=== PATIENT | female | born 1995 | race Caucasian/White ===

== ENCOUNTER 2017-04-10 00:28 | Emergency (ER) | payer MEDICAID ==
[2017-04-10] MEDS ORDERED: AMOXICILLIN TR/POT CLAVULANATE 500-125 MG TAB PO ONE (02:04)
[2017-04-10] MEDS ORDERED: TRAMADOL HCL 50 MG TABLET PO ONE (02:05)
--- NOTE | 2017-04-10 02:06 | ER Document Report ---
ED General - General Chief Complaint: Toothache Stated Complaint: TOOTHACHE Time Seen by Provider: 04/10/17 01:38 Notes: Patient is a 21-year-old female with a past history who presents with 3 days of progressively worsening pain to her right upper molars. Patient states she is concerned that she has an associated infection to the area. She has not seen a dentist regarding today's concerns. She describes as a severe, constant, stabbing pain to the affected area. She has tried ibuprofen with no relief of the pain. Nothing worsens the pain. Denies any difficulty swallowing, opening her mouth, difficulty breathing, or fever. No facial swelling. TRAVEL OUTSIDE OF THE [place] IN LAST 30 DAYS: No - Related Data Allergies/Adverse Reactions: No Known Allergies Allergy (Unverified 04/10/17 00:36) Past Medical History - General Information source: Patient - Social History Smoking Status: Never Smoker Chew tobacco use (# tins/day): No Frequency of alcohol use: None Drug Abuse: None Lives with: Family Family History: Reviewed & Not Pertinent Patient has suicidal ideation: No Patient has homicidal ideation: No Renal/ Medical History: Denies: Hx Peritoneal Dialysis Review of Systems - Review of Systems Notes: Constitutional: Negative for fever. HENT: Negative for sore throat. Eyes: Negative for visual changes. Cardiovascular: Negative for chest pain. Respiratory: Negative for shortness of breath. Gastrointestinal: Negative for abdominal pain, vomiting or diarrhea. Genitourinary: Negative for dysuria. Musculoskeletal: Negative for back pain. Skin: Negative for rash. Neurological: Negative for headaches, weakness or numbness. 10 point ROS negative except as marked above and in HPI. Physical Exam - Vital signs Vitals: Temp Pulse Resp BP Pulse Ox 97.5 F 82 16 119/58 L 100 04/10/17 00:32 04/10/17 00:32 04/10/17 00:32 04/10/17 00:32 04/10/17 00:32 Interpretation: Normal Notes: PHYSICAL EXAMINATION: GENERAL: Well-appearing, well-nourished and in no acute distress. HEAD: Atraumatic, normocephalic. EYES: sclera anicteric, conjunctiva are normal. ENT: Moist mucous membranes. Diffuse dental caries with swelling of the gumline near the right upper posterior molars NECK: Normal range of motion LUNGS: Normal work of breathing HEART: 2+ radial pulses bilaterally EXTREMITIES: no pitting or edema. No cyanosis. NEUROLOGICAL: No focal neurological deficits. Moves all extremities spontaneously and on command. PSYCH: Normal mood, normal affect. SKIN: Warm, Dry, normal turgor, no rashes or lesions noted. Course - Re-evaluation Re-evalutation: 04/10/17 02:04 Presentation is most consistent with likely an infected tooth. Does have multiple diffuse dental caries but the tooth #1 and 2 appear to have an associated infection. Airway is patent. Vitals within normal limits. Patient is able swallow without any difficulty. There is no significant facial swelling. Patient will be started on antibiotics. I've instructed to follow-up with dentistry as earliest ability for definitive management. Return precautions and follow-up recommendations have been discussed at length. - Vital Signs Vital signs: Temp Pulse Resp BP Pulse Ox 97.5 F 84 18 120/67 99 04/10/17 00:32 04/10/17 02:13 04/10/17 02:13 04/10/17 02:13 04/10/17 02:13 Discharge - Discharge Clinical Impression: Dental caries Condition: Good Disposition: HOME, SELF-CARE Additional Instructions: You have been seen for dental pain. It is very important that you follow-up with a dentist for definitive care. Please return if you develop fever greater than 101, swelling in your face, vomiting, difficulty breathing or swallowing, or any other symptoms that are concerning to you. For your pain: Take ibuprofen 600 mg and acetaminophen 1000 mg every 6 hours together as needed for pain. Prescriptions: Amox Tr/Potassium Clavulanate [Augmentin 875-125 Tablet] 1 tab PO BID 10 Days
[2017-04-10 02:14] VITALS: BP 120/67
== END 2017-04-10 02:13 | disposition home or self-care (01) ==
LOC: ER 00:28
DX: K02.9 Dental caries, unspecified (principal); K08.89 Other specified disorders of teeth and supporting structures
CPT/HCPCS: 99282; J3490

== ENCOUNTER 2017-05-17 18:52 | Inpatient (IN) | payer MEDICAID ==
[2017-05-17 19:20] LABS: VENOUS BLOOD BASE EXCESS -3.1 mmol/L; VENOUS BLOOD HCO3 19.9 mmol/L (20-32); VENOUS BLOOD PCO2 29.6 mmHg (35-63); VENOUS BLOOD PH 7.45 (7.30-7.42)
[2017-05-17 19:23] LABS: ABSOLUTE LYMPHOCYTES (AUTO) 0.7 10^3/uL (0.5-4.7); ABSOLUTE NEUT (AUTO) 10.4 10^3/uL (1.7-8.2); BASOPHILS % (AUTO) 0.2 % (0-2); EOSINOPHILS % (AUTO) 0.3 % (0-6); HEMATOCRIT 32.6 % (36.0-47.0); HEMOGLOBIN 10.8 g/dL (12.0-15.5); HGB HCT DIFFERENCE -0.2; LYMPHOCYTES % (AUTO) 5.9 % (13-45); MEAN CORPUSCULAR HEMOGLOBIN 29.9 pg (27.0-33.4); MEAN CORPUSCULAR HGB CONC 33.2 g/dL (32.0-36.0); MEAN CORPUSCULAR VOLUME 90 fl (80-97); MONOCYTES % (AUTO) 8.5 % (3-13); RED BLOOD COUNT 3.62 10^6/uL (3.72-5.28); RED CELL DISTRIBUTION WIDTH 13.9 % (11.5-14.0); SEGMENTED NEUTROPHILS % (AUTO) 85.1 % (42-78); WHITE BLOOD COUNT 12.3 10^3/uL (4.0-10.5)
[2017-05-17 19:31] LABS: ALANINE AMINOTRANSFERASE 26 U/L (9-52); ALKALINE PHOSPHATASE 100 U/L (38-126); ANION GAP 10 (5-19); ASPARTATE AMINO TRANSFERASE 16 U/L (14-36); BILIRUBIN,DIRECT 0.3 mg/dL (0.0-0.4); BILIRUBIN,TOTAL 0.4 mg/dL (0.2-1.3); BLOOD UREA NITROGEN 11 mg/dL (7-20); CALCIUM 8.1 mg/dL (8.4-10.2); CARBON DIOXIDE 17 mmol/L (22-30); CHLORIDE 103 mmol/L (98-107); CREATININE RESULT 0.81 mg/dL (0.52-1.25); GLUCOSE 98 mg/dL (75-110); POTASSIUM 3.8 mmol/L (3.6-5.0); SODIUM 129.9 mmol/L (137-145); TOTAL PROTEIN 6.2 g/dL (6.3-8.2)
[2017-05-17] MEDS ORDERED: NORMAL SALINE 1000 ML 1,000 ML IV ONE ×3 (19:35→23:50)
[2017-05-17] MEDS ORDERED: CEFTRIAXONE 1 GM/D5W RTU 50 ML IV ONE (19:45)
--- NOTE | 2017-05-17 19:46 | ER Document Report ---
ED General - General Chief Complaint: Flank pain, Fever Stated Complaint: FLANK PAIN Time Seen by Provider: 05/17/17 18:58 Notes: Patient is a 21-year-old female A1 who presents with 3 days of bilateral flank pain, suprapubic abdominal pain and 1 day of fever with associated vomiting and generalized malaise. Patient denies a history of similar symptoms in the past or during her prior pregnancies. States that several days ago she did have a small amount of vaginal spotting but this has since stopped. She has not seen an [facility]ING GROUP ANALYST for this yet. At time of my assessment she notes a severe, constant, stabbing pain to the bilateral flanks that is worsened by movement or touching the area. Nothing improves the pain. She notes an associated dysuria. TRAVEL OUTSIDE OF THE [place] IN LAST 30 DAYS: No - Related Data Allergies/Adverse Reactions: No Known Allergies Allergy (Unverified 04/10/17 00:36) Past Medical History - General Information source: Patient - Social History Smoking Status: Never Smoker Frequency of alcohol use: None Drug Abuse: None Lives with: Spouse/Significant other Family History: Reviewed & Not Pertinent Renal/ Medical History: Denies: Hx Peritoneal Dialysis Review of Systems - Review of Systems Notes: Constitutional: Positive for fever. HENT: Negative for sore throat. Eyes: Negative for visual changes. Cardiovascular: Negative for chest pain. Respiratory: Negative for shortness of breath. Gastrointestinal: Positive for suprapubic abdominal pain and vomiting Genitourinary: Positive for dysuria and bilateral flank pain Musculoskeletal: Negative for back pain. Skin: Negative for rash. Neurological: Negative for headaches, weakness or numbness. 10 point ROS negative except as marked above and in HPI. Physical Exam - Vital signs Vitals: Temp Pulse Resp BP Pulse Ox 101.2 F H 105 H 18 117/51 L 98 05/17/17 19:13 05/17/17 19:13 05/17/17 19:13 05/17/17 19:13 05/17/17 19:13 Interpretation: Tachycardic, Febrile Notes: PHYSICAL EXAMINATION: GENERAL: Appears mildly uncomfortable but no acute distress HEAD: Atraumatic, normocephalic. EYES: Pupils equal round and reactive to light, extraocular movements intact, sclera anicteric, conjunctiva are normal. ENT: nares patent, oropharynx clear without exudates. Dry mucous membranes. NECK: Normal range of motion, supple without lymphadenopathy LUNGS: Breath sounds clear to auscultation bilaterally and equal. No wheezes rales or rhonchi. HEART: Regular tachycardia without murmurs ABDOMEN: Soft, nontender, normoactive bowel sounds. No guarding, no rebound. No masses appreciated. Severe bilateral flank tenderness on palpation. EXTREMITIES: Normal range of motion, no pitting or edema. No cyanosis. NEUROLOGICAL: No focal neurological deficits. Moves all extremities spontaneously and on command. PSYCH: Normal mood, normal affect. SKIN: Warm, diaphoretic, normal turgor, no rashes or lesions noted. Course - Re-evaluation Re-evalutation: 05/17/17 19:45 Presentation is most consistent with acute pyelonephritis. Laboratories do demonstrate a large amount of white blood cells in the urine as well as bacteria. Patient has had constitutional symptoms at home as well as a fever. CVA tenderness is present on exam. The remainder laboratories are relatively unremarkable without evidence of renal dysfunction. I do not suspect an acute appendicitis, biliary pathology, pancreatitis, intra-abdominal abscess, or tubo- ovarian abscess based on history and examination. Patient is , bedside ultrasound does demonstrate a living intrauterine approximately 10 weeks with appropriate cardiac activity at a rate of 153 bpm. Given her in the setting of pyelonephritis will plan for admission to [facility]. 05/17/17 20:34 I have discussed this case with Dr. Tatum who agrees to admit. I discussed this plan with the patient who is also in agreement. Renal ultrasound is unremarkable. 05/17/17 21:24 The patient is now declining admission The patient has chosen to leave the facility against medical advice. The relevant issues have been reviewed and discussed with the patient and family at the bedside. At the time of this assessment there is no indication for involuntary commitment. The patient is alert, oriented, and able to express clearly their reasoning for not wanting to remain in the emergency department for further treatment. The patient is not clinically psychotic, intoxicated, and denies and suicidal ideation. Differential or suspected diagnoses based on medical screening exam: Pyelonephritis, sepsis The patient is aware of the concerning diagnoses and acknowledges understanding of the reasons for the following recommendations: Admission to the hospital for IV antibiotics and IV fluids The following recommendations/services were offered and refused: Hospital admission, IV antibiotics and fluids The following risks were explained: , permanent disability, loss of function, loss of , kidney dysfunction Clinical impression: Patient is competent to make decisions regarding the medical that is being offered. - Vital Signs Vital signs: Temp Pulse Resp BP Pulse Ox 99.5 F 105 H 18 95/65 L 98 05/17/17 20:36 05/17/17 19:13 05/17/17 20:56 05/17/17 20:56 05/17/17 20:56 - Laboratory Result Diagrams: 05/17/17 19:00 05/17/17 19:00 Laboratory results interpreted by me: 05/17/17 05/17/17 05/17/17 19:00 19:00 19:00 WBC 12.3 H RBC 3.62 L Hgb 10.8 L Hct 32.6 L Seg Neutrophils % 85.1 H Lymphocytes % 5.9 L Absolute Neutrophils 10.4 H VBG pH 7.45 H VBG pCO2 29.6 L VBG HCO3 19.9 L Sodium 129.9 L Carbon Dioxide 17 L POC Glucose Calcium 8.1 L Total Protein 6.2 L Albumin 3.0 L Urine Protein Urine Blood Urine Nitrite Ur Leukocyte Esterase 05/17/17 05/17/17 19:25 19:50 WBC RBC Hgb Hct Seg Neutrophils % Lymphocytes % Absolute Neutrophils VBG pH VBG pCO2 VBG HCO3 Sodium Carbon Dioxide POC Glucose 125 H Calcium Total Protein Albumin Urine Protein 30 H Urine Blood MODERATE H Urine Nitrite POSITIVE H Ur Leukocyte Esterase LARGE H - Diagnostic Test Radiology reviewed: Reports reviewed Discharge - Discharge Clinical Impression: Pyelonephritis Sepsis Qualifiers: Sepsis type: sepsis due to unspecified organism Qualified Code(s): A41.9 - Sepsis, unspecified organism Condition: Serious Disposition: AGAINST MEDICAL ADVICE
[2017-05-17 20:08] LABS: APPEARANCE,URINE CLOUDY; BILIRUBIN,URINE NEGATIVE (NEGATIVE); GLUCOSE, URINE NEGATIVE (NEGATIVE); KETONES,URINE NEGATIVE (NEGATIVE); LEUKOCYTE ESTERASE,URINE LARGE (NEGATIVE); NITRITE,URINE POSITIVE (NEGATIVE); PROTEIN,URINE 30 mg/dL (NEGATIVE); UROBILINOGEN,URINE NEGATIVE mg/dL (<2.0)
--- NOTE | 2017-05-17 20:29 | RADIOLOGY REPORT (SQ) ---
EXAM DESCRIPTION: U/S RETROPERITON LTD COMPLETED DATE/TIME: 05/17/2017 8:16 pm REASON FOR STUDY: bilateral flank pain, fever COMPARISON: None. TECHNIQUE: Dynamic and static grayscale images acquired of the kidneys and bladder and recorded on P ACS. Additional selected color Doppler and spectral images recorded. LIMITATIONS: None. FINDINGS: RIGHT KIDNEY: Normal size. Normal echogenicity. No solid or suspicious masses. No hydrone phrosis. No calcifications. LEFT KIDNEY: Normal size. Normal echogenicity. No solid or suspicious masses. No hydronephrosis. No calcifications. BLADDER: Limited evaluation, less than fully distended. OTHER FINDINGS: No other significant finding. IMPRESSION: NORMAL RENAL AND BLADDER ULTRASOUND. COMMENT: The degree of renal pelvicalyceal dilation is within normal limits for the patient's curren t stage of . TECHNICAL DOCUMENTATION: JOB ID: [id number] [email or web address]- All Rights Reserved
--- NOTE | 2017-05-17 21:56 | EKG REPORT ---
SEVERITY:- BORDERLINE ECG - SINUS RHYTHM BORDERLINE T ABNORMALITIES, INFERIOR LEADS : Confirmed by: Sony Eng MD 17-May-2017 21:56:21
[2017-05-17] MEDS ORDERED: ADENOSINE INJ/PF 6 MG/2 ML SDV IV ONE (23:07)
[2017-05-17] MEDS ORDERED: FENTANYL CITRATE INJ/PF 100 MCG/2 ML AMPUL ONE (23:09)
[2017-05-17] MEDS ORDERED: LORAZEPAM INJ 2 MG/1 ML VIAL ONE (23:10)
--- NOTE | 2017-05-17 23:30 | RADIOLOGY REPORT (SQ) ---
EXAM DESCRIPTION: CHEST SINGLE VIEW COMPLETED DATE/TIME: 05/17/2017 11:17 pm REASON FOR STUDY: FLANK PAIN COMPARISON: None. NUMBER OF VIEWS: One view. TECHNIQUE: Single frontal radiographic view of the chest acquired. LIMITATIONS: None. FINDINGS: LUNGS AND PLEURA: No opacities, masses or pneumothorax. No pleural effusion. MEDIASTINUM AND HILAR STRUCTURES: No masses. Contour normal. HEART AND VASCULAR STRUCTURES: Heart normal in size. Normal vasculature. BONES: No acute findings. HARDWARE: None in the chest. OTHER: No other significant finding. IMPRESSION: NO SIGNIFICANT RADIOGRAPHIC FINDING IN THE CHEST. TECHNICAL DOCUMENTATION: JOB ID: [id number] [employer]- All Rights Reserved
[2017-05-17] MEDS ORDERED: FENTANYL CITRATE INJ/PF 100 MCG/2 ML AMPUL IV ONE (23:31)
[2017-05-17] MEDS ORDERED: LORAZEPAM INJ 2 MG/1 ML VIAL IV ONE ×2 (23:31)
[2017-05-17] MEDS ORDERED: ACETAMINOPHEN 325 MG TABLET PO ONE (23:55)
[2017-05-18] MEDS ORDERED: NALOXONE HCL INJ/PF 0.4 MG/1 ML SDV IV ONE (00:45)
[2017-05-18] MEDS: OXYCODONE HCL IR 5 MG TABLET PO PRN ×5 (03:18→23:28)
[2017-05-18] MEDS: RINGERS SOLUTION,LACTATED 1,000 ML IV PRN (03:19)
--- NOTE | 2017-05-18 03:31 | PDOC H&P ---
History of Present Illness Admission Date/PCP: 05/17/17 20:57 Patient complains of: Back Pain History of Present Illness: KASHIF AVALOS is a 21 year old female with no care Pt reports a 4 day history of increasing right sided back pain. Pt reports urinary frequency and dysuria No vaginal bleeding Past Medical History LMP: ?? Obstetrical History: none 1 Delivery: Spontaneous Vaginal Delivery 2 Delivery: Spontaneous Vaginal Delivery Past Surgical History Past Surgical History: Reports: None Social History Lives with: Spouse/Significant other Smoking Status: Current Every Day Smoker Number of Years Smokin Frequency of Alcohol Use: None Hx Recreational Drug Use: No Drugs: None Hx Prescription Drug Abuse: No - Advance Directive Resuscitation Status: Full Code Family History Family History: Reviewed & Not Pertinent Parental Family History Reviewed: Yes Children Family History Reviewed: Yes Sibling(s) Family History Reviewed.: Yes Medication/Allergy Home Medications: Prenat Vit Comb.10/Iron/FA/Dha [Vitafol-Ob+Dha Combo Pack] 1 tab PO DAILY Allergies/Adverse Reactions: No Known Allergies Allergy (Unverified 04/10/17 00:36) Review of Systems All systems: reviewed and no additional remarkable complaints except as stated Physical Exam - Physical Exam Vital Signs: Temp Pulse Resp BP Pulse Ox 98.1 F 105 H 20 104/44 L 98 05/18/17 01:54 05/18/17 01:54 05/18/17 01:54 05/18/17 01:54 05/18/17 01:54 General appearance: PRESENT: no acute distress, cooperative, well-developed Respiratory exam: PRESENT: clear to auscultation [place] Cardiovascular exam: PRESENT: RRR GI/Abdominal exam: PRESENT: normal bowel sounds, soft, tenderness - Moderate Left CVA tenderness Result Impressions: Chest X-Ray 05/17/17 00:00 IMPRESSION: NO SIGNIFICANT RADIOGRAPHIC FINDING IN THE CHEST. Renal Ultrasound 05/17/17 18:59 IMPRESSION: NORMAL RENAL AND BLADDER ULTRASOUND. Assessment & Plan - Diagnosis (1) Qualifiers: Weeks of gestation: 10 weeks Qualified Code(s): Z3A.10 - 10 weeks gestation of Is this a current diagnosis for this admission?: Yes (2) Pyelonephritis Is this a current diagnosis for this admission?: Yes - Time Time Spent: 30 to 50 Minutes Medications reviewed and adjusted accordingly: Yes Anticipated discharge: Home Within: within 72 hours - Will give IV abx and IV rehydration will recheck labs and OB ultrasound in AM Plan d/c home with PO Abx
[2017-05-18] MEDS: PRENATAL VITAMIN W-O CA NO5/FE FUMARATE/FA CAPSULE PO SCH (10:04)
[2017-05-18] MEDS ORDERED: MORPHINE SULFATE 10 MG/ML INJ ONE (10:52)
[2017-05-18] MEDS ORDERED: MORPHINE SULFATE 10 MG/ML INJ IV ONE (11:30)
[2017-05-18] MEDS ORDERED: NICOTINE 21 MG/24 HR PATCH.TD24 TD ONE ×2 (11:30→15:00)
--- NOTE | 2017-05-18 12:08 | RADIOLOGY REPORT (SQ) ---
EXAM DESCRIPTION: U/S OB 14+ TRNABD 1GES W/O DOP COMPLETED DATE/TIME: 05/18/2017 11:52 am REASON FOR STUDY: pyleo/no care COMPARISON: None. TECHNIQUE: Transabdominal static and realtime grayscale images acquired of the pelvis. Additional se lected spectral and color Doppler images recorded. All images stored on PACs. bHCG: Not provided LIMITATIONS: None. FINDINGS: FETUS: EGA: 14 week 5 day SUGAR: 11/11/2017 EFW: Not calculated FHR: 160 beats per minute. EMMA: Adequate fluid PLACENTA: Posterior without evidence of abruption CERVICAL LENGTH: 2.3 cm. Closed. UTERUS: 14.4 x 10.5 x 9.4 cm, normal contours. RIGHT ADNEXA: Ovary not identified. No adnexal free fluid. No adnexal masses. LEFT ADNEXA: Ovary not identified. No adnexal free fluid. No adnexal masses. FREE FLUID: None. OTHER: Full anatomic survey is not performed. Grossly appropriate appearance of the spine, upper and lower extremities. IMPRESSION: LIVING INTRAUTERINE . ESTIMATED GESTATIONAL AGE:14 week 5 day. Trimester of : Second trimester - 13 weeks 1 day to 27 weeks 6 days. TECHNICAL DOCUMENTATION: JOB ID: [id number] [employer]- All Rights Reserved
[2017-05-18] MEDS: ACETAMINOPHEN 325 MG TABLET PO PRN ×2 (14:42→20:56)
[2017-05-18] MEDS: CEFTRIAXONE 1 GM/D5W RTU 1 GM/50 ML RTUPB IV SCH (17:39)
[2017-05-18 20:46] LABS: HEMATOCRIT 31.6 % (36.0-47.0); HEMOGLOBIN 10.3 g/dL (12.0-15.5); HGB HCT DIFFERENCE -0.7; MEAN CORPUSCULAR HEMOGLOBIN 29.9 pg (27.0-33.4); MEAN CORPUSCULAR HGB CONC 32.6 g/dL (32.0-36.0); MEAN CORPUSCULAR VOLUME 92 fl (80-97); RED BLOOD COUNT 3.45 10^6/uL (3.72-5.28); RED CELL DISTRIBUTION WIDTH 14.4 % (11.5-14.0); WHITE BLOOD COUNT 13.1 10^3/uL (4.0-10.5)
[2017-05-18] MEDS: HYDROMORPHONE HCL INJ/PF 2 MG/ML AMPULE IV PRN (20:55)
[2017-05-18] MEDS: ONDANSETRON HCL INJ/PF 4 MG/2 ML SDV IV PRN (21:00)
[2017-05-18 21:25] LABS: APPEARANCE,URINE CLEAR; BILIRUBIN,URINE NEGATIVE (NEGATIVE); GLUCOSE, URINE NEGATIVE (NEGATIVE); KETONES,URINE 20 mg/dL (NEGATIVE); LEUKOCYTE ESTERASE,URINE TRACE (NEGATIVE); NITRITE,URINE NEGATIVE (NEGATIVE); PROTEIN,URINE NEGATIVE (NEGATIVE); URINE SPECIFIC GRAVITY 1.005; UROBILINOGEN,URINE NEGATIVE mg/dL (<2.0)
[2017-05-19] MEDS: HYDROMORPHONE HCL INJ/PF 2 MG/ML AMPULE IV PRN ×7 (00:30→23:22)
[2017-05-19] MEDS: RINGERS SOLUTION,LACTATED 1,000 ML IV PRN ×3 (00:36→17:46)
[2017-05-19] MEDS: OXYCODONE HCL IR 5 MG TABLET PO PRN ×4 (03:53→22:06)
[2017-05-19] MEDS: ACETAMINOPHEN 325 MG TABLET PO PRN ×3 (04:55→19:51)
[2017-05-19] MEDS: ONDANSETRON HCL INJ/PF 4 MG/2 ML SDV IV PRN ×3 (05:45→23:36)
[2017-05-19 06:44] LABS: ABSOLUTE LYMPHOCYTES (AUTO) 0.9 10^3/uL (0.5-4.7); ABSOLUTE NEUT (AUTO) 10.1 10^3/uL (1.7-8.2); BASOPHILS % (AUTO) 0.3 % (0-2); EOSINOPHILS % (AUTO) 0.1 % (0-6); HEMATOCRIT 29.1 % (36.0-47.0); HEMOGLOBIN 9.5 g/dL (12.0-15.5); HGB HCT DIFFERENCE -0.6; LYMPHOCYTES % (AUTO) 7.7 % (13-45); MEAN CORPUSCULAR HEMOGLOBIN 29.8 pg (27.0-33.4); MEAN CORPUSCULAR HGB CONC 32.6 g/dL (32.0-36.0); MEAN CORPUSCULAR VOLUME 92 fl (80-97); MONOCYTES % (AUTO) 7.9 % (3-13); RED BLOOD COUNT 3.18 10^6/uL (3.72-5.28); RED CELL DISTRIBUTION WIDTH 14.3 % (11.5-14.0); WHITE BLOOD COUNT 12.1 10^3/uL (4.0-10.5)
[2017-05-19 07:11] LABS: ANION GAP 8 (5-19); BLOOD UREA NITROGEN 5 mg/dL (7-20); CARBON DIOXIDE 20 mmol/L (22-30); CHLORIDE 104 mmol/L (98-107); CREATININE RESULT 0.69 mg/dL (0.52-1.25); GLUCOSE 96 mg/dL (75-110); POTASSIUM 3.8 mmol/L (3.6-5.0); SODIUM 132.4 mmol/L (137-145)
--- NOTE | 2017-05-19 08:21 | PDOC PROGRESS REPORT ---
Subjective Subjective:: Pt reports that the L CVA pain is getting worse and starting to move around to the front of her abdomen Emesis x1 No vaginal bleeding Physical Exam - Physical Exam Vital Signs: Temp Pulse Resp BP Pulse Ox 98.4 F 102 H 20 112/48 L 98 05/19/17 03:55 05/19/17 03:55 05/19/17 03:55 05/19/17 03:55 05/19/17 03:55 Intake & Output 05/18/17 05/19/17 05/20/17 06:59 06:59 06:59 Intake Total 600 4150 Output Total 900 Balance 600 3250 General appearance: PRESENT: cooperative, mild distress, well-developed, well- nourished GI/Abdominal exam: PRESENT: normal bowel sounds, soft - Left CVA tenderness is more today that was upon admission Result Laboratory Results: 05/19/17 06:07 05/19/17 06:07 05/18/17 05/18/17 05/19/17 20:28 21:07 06:07 WBC 13.1 H 12.1 H RBC 3.45 L 3.18 L Hgb 10.3 L 9.5 L Hct 31.6 L 29.1 L MCV 92 92 MCH 29.9 29.8 MCHC 32.6 32.6 RDW 14.4 H 14.3 H Plt Count 127 L 132 L Seg Neutrophils % 84.0 H Lymphocytes % 7.7 L Monocytes % 7.9 Eosinophils % 0.1 Basophils % 0.3 Absolute Neutrophils 10.1 H Absolute Lymphocytes 0.9 Absolute Monocytes 1.0 Absolute Eosinophils 0.0 Absolute Basophils 0.0 Sodium Potassium Chloride Carbon Dioxide Anion Gap BUN Creatinine Est GFR ( Amer) Est GFR (Non-Af Amer) Glucose Calcium Urine Color YELLOW Urine Appearance CLEAR Urine pH 6.0 Ur Specific [place] 1.005 Urine Protein NEGATIVE Urine Glucose (UA) NEGATIVE Urine Ketones 20 H Urine Blood MODERATE H Urine Nitrite NEGATIVE Ur Leukocyte Esterase TRACE H Urine WBC (Auto) 13 Urine RBC (Auto) 45 05/19/17 06:07 WBC RBC Hgb Hct MCV MCH MCHC RDW Plt Count Seg Neutrophils % Lymphocytes % Monocytes % Eosinophils % Basophils % Absolute Neutrophils Absolute Lymphocytes Absolute Monocytes Absolute Eosinophils Absolute Basophils Sodium 132.4 L Potassium 3.8 Chloride 104 Carbon Dioxide 20 L Anion Gap 8 BUN 5 L Creatinine 0.69 Est GFR ( Amer) > 60 Est GFR (Non-Af Amer) > 60 Glucose 96 Calcium 8.0 L Urine Color Urine Appearance Urine pH Ur Specific [place] Urine Protein Urine Glucose (UA) Urine Ketones Urine Blood Urine Nitrite Ur Leukocyte Esterase Urine WBC (Auto) Urine RBC (Auto) Impressions: Chest X-Ray 05/17/17 00:00 IMPRESSION: NO SIGNIFICANT RADIOGRAPHIC FINDING IN THE CHEST. Renal Ultrasound 05/17/17 18:59 IMPRESSION: NORMAL RENAL AND BLADDER ULTRASOUND. Obstetrics Ultrasound 05/18/17 08:00 IMPRESSION: LIVING INTRAUTERINE . ESTIMATED GESTATIONAL AGE:14 week 5 day. Trimester of : Second trimester - 13 weeks 1 day to 27 weeks 6 days. Assessment & Plan - Diagnosis (1) Qualifiers: Weeks of gestation: 10 weeks Qualified Code(s): Z3A.10 - 10 weeks gestation of Is this a current diagnosis for this admission?: Yes (2) Pyelonephritis Is this a current diagnosis for this admission?: Yes (3) Kidney calculi Is this a current diagnosis for this admission?: Yes - Time Time Spent with patient: Less than 15 minutes Medications reviewed and adjusted accordingly: Yes Anticipated discharge: Home Within: Other - I suspect pt has a kidney stone Will recheck renal ultrasound and continue IV Abx and hydration Will start straining her urine
[2017-05-19] MEDS: NICOTINE 21 MG/24 HR PATCH.TD24 TD SCH (10:19)
[2017-05-19] MEDS: PRENATAL VITAMIN W-O CA NO5/FE FUMARATE/FA CAPSULE PO SCH (10:19)
--- NOTE | 2017-05-19 12:36 | RADIOLOGY REPORT (SQ) ---
EXAM DESCRIPTION: U/S RETROPERITON (RENAL/AORTA) COMPLETED DATE/TIME: 05/19/2017 11:48 am REASON FOR STUDY: LEFT FLANK PAIN COMPARISON: OB ultrasound 05/18/2017 Bilateral renal ultrasound 05/17/2017 TECHNIQUE: Dynamic and static grayscale images acquired of the kidneys and bladder and recorded on P ACS. Additional selected color Doppler and spectral images recorded. LIMITATIONS: None. FINDINGS: RIGHT KIDNEY: Normal size, 11 cm in length. Normal echogenicity. No solid or suspicious ma sses. No hydronephrosis. No calcifications. LEFT KIDNEY: Normal size, 11 cm in length. Normal echogenicity. No solid or suspicious masses. No hy dronephrosis. No calcifications. BLADDER: Bladder decompressed. Gravid uterus. Bladder not well seen. OTHER FINDINGS: No other significant finding. IMPRESSION: NORMAL RENAL ULTRASOUND. No hydronephrosis particularly on the left TECHNICAL DOCUMENTATION: JOB ID: [id number]- All Rights Reserved
[2017-05-19] MEDS: CEFTRIAXONE 1 GM/D5W RTU 1 GM/50 ML RTUPB IV SCH (17:46)
[2017-05-20] MEDS: HYDROMORPHONE HCL INJ/PF 2 MG/ML AMPULE IV PRN ×6 (01:47→22:41)
[2017-05-20] MEDS: RINGERS SOLUTION,LACTATED 1,000 ML IV PRN (02:01)
[2017-05-20] MEDS: OXYCODONE HCL IR 5 MG TABLET PO PRN ×3 (02:37→15:47)
[2017-05-20] MEDS: ACETAMINOPHEN 325 MG TABLET PO PRN ×2 (04:09→20:30)
[2017-05-20] MEDS ORDERED: PROMETHAZINE HCL INJ 25 MG/1 ML VIAL IV ONE (05:00)
[2017-05-20] MEDS ORDERED: ACETAMINOPHEN 325 MG TABLET PO ONE (05:00)
[2017-05-20 06:55] LABS: HEMATOCRIT 26.3 % (36.0-47.0); HEMOGLOBIN 8.8 g/dL (12.0-15.5); HGB HCT DIFFERENCE 0.1; MEAN CORPUSCULAR HEMOGLOBIN 29.9 pg (27.0-33.4); MEAN CORPUSCULAR HGB CONC 33.5 g/dL (32.0-36.0); MEAN CORPUSCULAR VOLUME 89 fl (80-97); RED BLOOD COUNT 2.94 10^6/uL (3.72-5.28); RED CELL DISTRIBUTION WIDTH 14.4 % (11.5-14.0); WHITE BLOOD COUNT 5.4 10^3/uL (4.0-10.5)
[2017-05-20 07:01] LABS: APPEARANCE,URINE CLEAR; BILIRUBIN,URINE NEGATIVE (NEGATIVE); GLUCOSE, URINE NEGATIVE (NEGATIVE); KETONES,URINE NEGATIVE (NEGATIVE); LEUKOCYTE ESTERASE,URINE TRACE (NEGATIVE); NITRITE,URINE NEGATIVE (NEGATIVE); PROTEIN,URINE NEGATIVE (NEGATIVE); URINE SPECIFIC GRAVITY 1.002; UROBILINOGEN,URINE NEGATIVE mg/dL (<2.0)
[2017-05-20] MEDS: PRENATAL VITAMIN W-O CA NO5/FE FUMARATE/FA CAPSULE PO SCH (09:00)
[2017-05-20] MEDS: NICOTINE 21 MG/24 HR PATCH.TD24 TD SCH (09:00)
--- NOTE | 2017-05-20 09:59 | PDOC PROGRESS REPORT ---
Subjective Progress Note for:: 05/20/17 Subjective:: Pt still with severe left flank flank. Some nausea but no vomiting. Requiring frequent Dilaudid. No BM for 3-4 days. No longer with dysuria. No vaginal bleeding. Physical Exam - Physical Exam Vital Signs: Temp Pulse Resp BP Pulse Ox 99.1 F 96 19 112/48 L 93 05/20/17 08:06 05/20/17 08:06 05/20/17 08:06 05/20/17 08:06 05/20/17 08:06 Intake & Output 05/19/17 05/20/17 05/21/17 06:59 06:59 06:59 Intake Total 4150 2965 Output Total 900 3500 Balance 3250 -535 General appearance: PRESENT: other - appears slightly diaphoretic and tired GI/Abdominal exam: PRESENT: tenderness - tender left flank Extremities exam: PRESENT: full ROM. ABSENT: calf tenderness, clubbing, pedal edema Result Laboratory Results: 05/20/17 06:21 05/19/17 06:07 05/20/17 05/20/17 06:21 06:30 WBC 5.4 RBC 2.94 L Hgb 8.8 L Hct 26.3 L MCV 89 MCH 29.9 MCHC 33.5 RDW 14.4 H Plt Count 126 L Urine Color STRAW Urine Appearance CLEAR Urine pH 7.0 Ur Specific [place] 1.002 Urine Protein NEGATIVE Urine Glucose (UA) NEGATIVE Urine Ketones NEGATIVE Urine Blood SMALL H Urine Nitrite NEGATIVE Ur Leukocyte Esterase TRACE H Urine WBC (Auto) 2 Urine RBC (Auto) 0 Impressions: Chest X-Ray 05/17/17 00:00 IMPRESSION: NO SIGNIFICANT RADIOGRAPHIC FINDING IN THE CHEST. Obstetrics Ultrasound 05/18/17 08:00 IMPRESSION: LIVING INTRAUTERINE . ESTIMATED GESTATIONAL AGE:14 week 5 day. Trimester of : Second trimester - 13 weeks 1 day to 27 weeks 6 days. Renal Ultrasound 05/19/17 00:00 IMPRESSION: NORMAL RENAL ULTRASOUND. No hydronephrosis particularly on the left Assessment & Plan - Diagnosis (1) Kidney calculi Is this a current diagnosis for this admission?: Yes (2) Pyelonephritis Is this a current diagnosis for this admission?: Yes - Plan Summary Plan Summary: add toradol for pain managemetn and check urine tox (knowing narcotics present from hospitalization-assure no other substances) -check chemical analysis of possible kidney stones -increase rocephin to bid -add senakot/miralax -check daily labs
[2017-05-20] MEDS: KETOROLAC TROMETHAMINE INJ/PF 30 MG/1 ML SDV IV PRN ×2 (11:11→20:32)
[2017-05-20] MEDS: ONDANSETRON HCL INJ/PF 4 MG/2 ML SDV IV PRN (11:29)
[2017-05-20] MEDS ORDERED: POLYETHYLENE GLYCOL 3350 POWDER 17 GM/1 PACKET PO ONE (11:30)
[2017-05-20 11:35] LABS: URINE BARBITURATES SCREEN NEGATIVE; URINE METHADONE SCREEN NEGATIVE; URINE OPIATES LOW UNCONFIRMED POSITIVE; URINE PHENCYCLIDINE SCREEN NEGATIVE
[2017-05-20] MEDS ORDERED: CEFTRIAXONE 1 GM/D5W RTU 1 GM/50 ML RTUPB IV ONE (13:00)
[2017-05-20] MEDS: CEFTRIAXONE 1 GM/D5W RTU 1 GM/50 ML RTUPB IV SCH (18:26)
[2017-05-21] MEDS ORDERED: HYDROXYZINE PAMOATE 50 MG CAPSULE PO ONE (00:15)
[2017-05-21] MEDS ORDERED: BISACODYL 10 MG SUPP.RECT PR PRN (05:00)
[2017-05-21] MEDS: HYDROMORPHONE HCL INJ/PF 2 MG/ML AMPULE IV PRN ×2 (05:04→11:35)
[2017-05-21] MEDS: CEFTRIAXONE 1 GM/D5W RTU 1 GM/50 ML RTUPB IV SCH (05:04)
[2017-05-21] MEDS: KETOROLAC TROMETHAMINE INJ/PF 30 MG/1 ML SDV IV PRN (06:38)
[2017-05-21] MEDS: ACETAMINOPHEN 325 MG TABLET PO PRN (06:59)
[2017-05-21] MEDS: OXYCODONE HCL IR 5 MG TABLET PO PRN ×2 (07:00→12:54)
[2017-05-21 07:07] LABS: HEMATOCRIT 27.5 % (36.0-47.0); HGB HCT DIFFERENCE -0.5; MEAN CORPUSCULAR HEMOGLOBIN 29.3 pg (27.0-33.4); MEAN CORPUSCULAR HGB CONC 32.6 g/dL (32.0-36.0); MEAN CORPUSCULAR VOLUME 90 fl (80-97); RED BLOOD COUNT 3.06 10^6/uL (3.72-5.28); RED CELL DISTRIBUTION WIDTH 14.4 % (11.5-14.0); WHITE BLOOD COUNT 4.5 10^3/uL (4.0-10.5)
[2017-05-21 07:27] LABS: ALANINE AMINOTRANSFERASE 37 U/L (9-52); ALBUMIN 2.5 g/dL (3.5-5.0); ALKALINE PHOSPHATASE 145 U/L (38-126); ANION GAP 9 (5-19); ASPARTATE AMINO TRANSFERASE 25 U/L (14-36); BILIRUBIN,DIRECT 0.2 mg/dL (0.0-0.4); BILIRUBIN,TOTAL 0.2 mg/dL (0.2-1.3); BLOOD UREA NITROGEN 8 mg/dL (7-20); CALCIUM 7.8 mg/dL (8.4-10.2); CARBON DIOXIDE 24 mmol/L (22-30); CHLORIDE 104 mmol/L (98-107); CREATININE RESULT 0.73 mg/dL (0.52-1.25); GLUCOSE 80 mg/dL (75-110); POTASSIUM 4.1 mmol/L (3.6-5.0); SODIUM 136.7 mmol/L (137-145); TOTAL PROTEIN 5.4 g/dL (6.3-8.2)
[2017-05-21] MEDS ORDERED: ONDANSETRON HCL INJ/PF 4 MG/2 ML SDV IV PRN (08:59)
[2017-05-21] MEDS ORDERED: SENNOSIDES/DOCUSATE 8.6-50 MG 1 EACH TABLET PO SCH (10:00)
--- NOTE | 2017-05-21 10:09 | RADIOLOGY REPORT (SQ) ---
EXAM DESCRIPTION: U/S RETROPERITON LTD COMPLETED DATE/TIME: 05/21/2017 9:46 am REASON FOR STUDY: left renal US to R/O abcess COMPARISON: 05/19/2017 TECHNIQUE: Dynamic and static grayscale images acquired of the kidneys and bladder and recorded on P ACS. Additional selected color Doppler and spectral images recorded. LIMITATIONS: None. FINDINGS: RIGHT KIDNEY: 11.6 cm in length Normal echogenicity. No solid or suspicious masses. No hydronephrosis. No calcifications. LEFT KIDNEY: 12.1 cm in length. Normal echogenicity. A complex appearing hypoechoic area is now identified in the midportion of the left kidney measuring 2.6 x 1.9 x 1.8 cm in diameters. The possi bility of a developing abscess collection cannot be excluded. No hydronephrosis. No calcification s. BLADDER: No masses. OTHER FINDINGS: What may represent a small right pleural effusion is identified IMPRESSION: A complex appearing hypoechoic area is now identified in the midportion of the left kidn ey is noted above. The possibility of a developing abscess collection cannot be excluded. Other fin dings as noted above TECHNICAL DOCUMENTATION: JOB ID: [id number] [employer]- All Rights Reserved
[2017-05-21] MEDS: PRENATAL VITAMIN W-O CA NO5/FE FUMARATE/FA CAPSULE PO SCH (10:19)
[2017-05-21] MEDS: NICOTINE 21 MG/24 HR PATCH.TD24 TD SCH (10:19)
--- NOTE | 2017-05-21 11:38 | PDOC PROGRESS REPORT ---
Subjective Progress Note for:: 05/21/17 Subjective:: pt reports nightly night sweats and fevers and increase in pain., also having constipation. Physical Exam - Physical Exam Vital Signs: Temp Pulse Resp BP Pulse Ox 99.9 F 105 H 17 119/47 L 95 05/21/17 07:24 05/21/17 07:24 05/21/17 07:24 05/21/17 07:24 05/21/17 07:24 Intake & Output 05/20/17 05/21/17 05/22/17 06:59 06:59 06:59 Intake Total 2965 4750 Output Total 3500 3100 100 Balance -535 1650 -100 General appearance: PRESENT: no acute distress, well-developed, well-nourished Head exam: PRESENT: atraumatic, normocephalic Respiratory exam: PRESENT: decreased breath sounds - in bases - reviewed incentive spirometer, symmetrical, unlabored. ABSENT: tachypnea, wheezes Cardiovascular exam: PRESENT: RRR. ABSENT: diastolic murmur, rubs, systolic murmur GI/Abdominal exam: PRESENT: normal bowel sounds, soft, tenderness - prob stool in area of abd that she reports feeling full/discomfort. + Left CVAT ttp. ABSENT: distended, guarding, mass, organolmegaly, rebound Rectal exam: PRESENT: deferred Extremities exam: ABSENT: calf tenderness Musculoskeletal exam: PRESENT: ambulatory Neurological exam: PRESENT: alert, awake, oriented to person, oriented to place , oriented to time, oriented to situation, CN II-XII grossly intact. ABSENT: motor sensory deficit Psychiatric exam: PRESENT: appropriate affect, normal mood. ABSENT: homicidal ideation, suicidal ideation Skin exam: PRESENT: dry, intact, warm. ABSENT: cyanosis, rash Result Laboratory Results: 05/21/17 06:26 05/21/17 06:26 05/21/17 05/21/17 06:26 06:26 WBC 4.5 RBC 3.06 L Hgb 9.0 L Hct 27.5 L MCV 90 MCH 29.3 MCHC 32.6 RDW 14.4 H Plt Count 155 Sodium 136.7 L Potassium 4.1 Chloride 104 Carbon Dioxide 24 Anion Gap 9 BUN 8 Creatinine 0.73 Est GFR ( Amer) > 60 Est GFR (Non-Af Amer) > 60 Glucose 80 Calcium 7.8 L Total Bilirubin 0.2 AST 25 ALT 37 Alkaline Phosphatase 145 H Total Protein 5.4 L Albumin 2.5 L Impressions: Chest X-Ray 05/17/17 00:00 IMPRESSION: NO SIGNIFICANT RADIOGRAPHIC FINDING IN THE CHEST. Obstetrics Ultrasound 05/18/17 08:00 IMPRESSION: LIVING INTRAUTERINE . ESTIMATED GESTATIONAL AGE:14 week 5 day. Trimester of : Second trimester - 13 weeks 1 day to 27 weeks 6 days. Renal Ultrasound 05/21/17 00:00 IMPRESSION: A complex appearing hypoechoic area is now identified in the midportion of the left kidney is noted above. The possibility of a developing abscess collection cannot be excluded. Other findings as noted above Status: Imported from PACS Assessment & Plan - Diagnosis (1) Kidney calculi Is this a current diagnosis for this admission?: YesPlan: Prior provider suspected renal calculi due to + RBC in urine and flank pain - cont to strain urine (2) Qualifiers: Weeks of gestation: 15 weeks Qualified Code(s): Z3A.15 - 15 weeks gestation of Is this a current diagnosis for this admission?: YesPlan: Continue current care with doptones. PNV (3) Pyelonephritis Is this a current diagnosis for this admission?: YesPlan: Continue Rocephin now BID. REnal US ordered due to continuing to spike daily fevers. Concern for renal abcess. - Time Time Spent with patient: 15-24 minutes Critical Time spent with patient: Less than 15 minutes Smoking Cessation Education: 3 to 10 minutes Medications reviewed and adjusted accordingly: Yes Anticipated discharge: Home Within: within 72 hours, Other - poss need for transfer - Inpatient Certification Based on my medical assessment, after consideration of the patient's comorbidities, presenting symptoms, or acuity I expect that the services needed warrant INPATIENT care.: Yes I certify that my determination is in accordance with my understanding of Medicare's requirements for reasonable and necessary INPATIENT services [42 CFR 412.3e].: Yes Medical Necessity: Significant Comorbidiites Make Outpatient Treatment Too Risky , Need For IV Fluids, Need for IV Antibiotics Post Hospital Care: D/C News Department Intern Documentation - Plan Summary Plan Summary: Obtaine renal US and may need to adjust abx, r/o renal abscess
[2017-05-21] MEDS ORDERED: PIPERACILLIN/TAZOBACTAM 3.375 GM VIAL IV ONE (11:42)
--- NOTE | 2017-05-21 11:58 | PDOC TRANSFER SUMMARY ---
General Admission Date/PCP: 05/18/17 01:30 Admission Date: 05/17/17 Transfer Date: 05/21/17 Accepting Facility: [facility] Accepting Physician: Dr. Zak Bay Resuscitation Status: Full Code - Transfer Diagnosis (1) Kidney calculi Is this a current diagnosis for this admission?: Yes (2) Is this a current diagnosis for this admission?: Yes (3) Pyelonephritis Is this a current diagnosis for this admission?: Yes (4) Renal abscess, left Is this a current diagnosis for this admission?: YesDiagnosis Summary: needs for higher level of care and poss need for drainage of left renal abscess. See prior progress note. Very much appreciate Dr. Bay and [facility] for assistance with patient care. - Transfer Medications Home Medications: Prenat Vit Comb.10/Iron/FA/Dha [Vitafol-Ob+Dha Combo Pack] 1 tab PO DAILY Transfer Medications: Current Medications Acetaminophen (Tylenol 325 Mg Tablet) 650 mg PO Q6HP PRN PRN Reason: FOR PAIN OR TEMP Stop: 06/17/17 02:16 Last Admin: 05/21/17 06:59 Dose: 650 mg Bisacodyl (Dulcolax 10 Mg Supp.Rect) 10 mg IA ONCEP PRN PRN Reason: NO RESULTS DURING NIGHT Stop: 05/21/17 23:59 Last Admin: 05/21/17 06:42 Dose: 10 mg Hydromorphone HCl (Dilaudid Inj/Pf 2 Mg/Ml Ampule) 2 mg IV Q2HP PRN PRN Reason: PAIN Stop: 05/26/17 10:47 Last Admin: 05/21/17 11:35 Dose: 2 mg Lactated Ringer's (Lactated Ringers 1000 Ml Iv Soln) 1,000 mls @ 125 mls/hr IV CONTINUOUS PRN PRN Reason: THIS MED IS NOT "PRN" Stop: 06/17/17 02:15 Last Admin: 05/20/17 02:01 Dose: 1,000 ml Ketorolac Tromethamine (Toradol Inj/Pf 30 Mg/1 Ml Sdv) 30 mg IV Q8HP PRN PRN Reason: PAIN Stop: 05/25/17 10:26 Last Admin: 05/21/17 06:38 Dose: 30 mg Multivi/Iron Carb/Fe Sulf/FA/Prenat (-U Multiple Vitamin Capsule) 1 cap PO DAILY KIANA Stop: 06/17/17 09:59 Last Admin: 05/21/17 10:19 Dose: 1 cap Nicotine (Nicoderm 21 Mg/24 Hr Transderm Patch) 1 each TD DAILY KIANA Stop: 06/18/17 09:59 Last Admin: 05/21/17 10:19 Dose: 1 each Ondansetron HCl (Zofran Inj/Pf 4 Mg/2 Ml Sdv) 8 mg IV Q8HP PRN PRN Reason: FOR NAUSEA/VOMITING Stop: 06/17/17 02:16 Oxycodone HCl (Oxy-Ir 5 Mg Tablet) 5 mg PO Q4HP PRN PRN Reason: PAIN Stop: 05/25/17 02:17 Last Admin: 05/21/17 07:00 Dose: 5 mg Piperacillin Sod/Tazobactam Sod (Zosyn Inj 3.375 Gm Vial) 3.375 gm IV IVBAG (ED ) ONE Stop: 05/21/17 11:43 Senna/Docusate Sodium (Senna Plus Tablet) 1 each PO DAILY KIANA Stop: 06/20/17 09:59 Last Admin: 05/21/17 10:20 Dose: 1 each - Allergies Allergies/Adverse Reactions: No Known Allergies Allergy (Unverified 04/10/17 00:36) - Diet/Activity Discharge Diet: As Tolerated Discharge Activity: Activity As Tolerated Hospital Course Hospital Course: 21yo with no care admitted to floor on Friday 05/18 due to fevers and severe left flank pain. She was initiated on Rocephin and Blood culture/urine cultures obtained. REnal US on admission showed no e/o abscess. US for dating on admission noted SUGAR 11/11/2017. She initally had a good response to Rocephin and had improved pain. However, after 48 hours of abx she continued to spike fevers. Rocephin was changed to BID dosing and Urine culture grew out 2 different E. coli both were sensitive to Rocephin. Pt however, continued to spike fevers - last was [id number] last pm. Due to patient with continued flank pain and CVAT and continued fevers despite BID rocephin I requested US today and now there appears to be a left renal abscess. Nephologist was called and they agreed with recommendation for transfer to [facility] as there is no Urology available here. Dr. Bay accepts care. Physical Exam Vital Signs: Temp Pulse Resp BP Pulse Ox 99.9 F 105 H 17 119/47 L 95 05/21/17 07:24 05/21/17 07:24 05/21/17 07:24 05/21/17 07:24 05/21/17 07:24 Intake & Output 05/20/17 05/21/17 05/22/17 06:59 06:59 06:59 Intake Total 2965 4750 Output Total 3500 3100 100 Balance -535 1650 -100 General appearance: PRESENT: no acute distress, well-developed, well-nourished, other - sitting in bed eating. Head exam: PRESENT: atraumatic, normocephalic Respiratory exam: PRESENT: clear to auscultation louis, decreased breath sounds, symmetrical, unlabored. ABSENT: rales, rhonchi, wheezes Cardiovascular exam: PRESENT: RRR. ABSENT: diastolic murmur, rubs, systolic murmur Pulses: PRESENT: normal dorsalis pedis pul Vascular exam: PRESENT: normal capillary refill GI/Abdominal exam: PRESENT: normal bowel sounds, soft, tenderness - improved with BM after supp given.. ABSENT: distended, guarding, mass, organolmegaly, rebound Rectal exam: PRESENT: deferred Extremities exam: PRESENT: full ROM. ABSENT: calf tenderness, clubbing, pedal edema Musculoskeletal exam: PRESENT: ambulatory Neurological exam: PRESENT: alert, awake, oriented to person, oriented to place , oriented to time, oriented to situation, CN II-XII grossly intact. ABSENT: motor sensory deficit Psychiatric exam: PRESENT: appropriate affect, normal mood. ABSENT: homicidal ideation, suicidal ideation Skin exam: PRESENT: dry, intact, warm. ABSENT: cyanosis, rash Results Laboratory Results: 05/21/17 06:26 05/21/17 06:26 05/21/17 05/21/17 06:26 06:26 WBC 4.5 RBC 3.06 L Hgb 9.0 L Hct 27.5 L MCV 90 MCH 29.3 MCHC 32.6 RDW 14.4 H Plt Count 155 Sodium 136.7 L Potassium 4.1 Chloride 104 Carbon Dioxide 24 Anion Gap 9 BUN 8 Creatinine 0.73 Est GFR ( Amer) > 60 Est GFR (Non-Af Amer) > 60 Glucose 80 Calcium 7.8 L Total Bilirubin 0.2 AST 25 ALT 37 Alkaline Phosphatase 145 H Total Protein 5.4 L Albumin 2.5 L Impressions: Chest X-Ray 05/17/17 00:00 IMPRESSION: NO SIGNIFICANT RADIOGRAPHIC FINDING IN THE CHEST. Obstetrics Ultrasound 05/18/17 08:00 IMPRESSION: LIVING INTRAUTERINE . ESTIMATED GESTATIONAL AGE:14 week 5 day. Trimester of : Second trimester - 13 weeks 1 day to 27 weeks 6 days. Renal Ultrasound 05/21/17 00:00 IMPRESSION: A complex appearing hypoechoic area is now identified in the midportion of the left kidney is noted above. The possibility of a developing abscess collection cannot be excluded. Other findings as noted above Plan Discharge Plan: Transfer to [facility] for higher level of care and Access to urology and Nephology if needed. Appreciate [facility] for assistance with care of this patient.
[2017-05-21 12:25] VITALS: BP 108/48
[2017-05-21] MEDS ORDERED: PIPERACILLIN SODIUM/TAZOBACTAM 3.375 GM in NORMAL SALINE 100 ML IV ONE (13:00)
[2017-05-21] MEDS ORDERED: PIPERACILLIN SODIUM/TAZOBACTAM 3.375 GM in NORMAL SALINE 100 ML IV SCH (15:00)
[2017-05-29 18:37] LABS: COLOR Brown (.)
[2017-05-30 07:42] LABS: STONE ANALYSIS COMMENT Comment: (.)
== END 2017-05-21 14:20 | disposition short-term general hospital (02) | DRG 775 ==
LOC: ER 18:52 → UNDOADMIN 20:57 → EH 20:57 → 2S 05-18 01:30 → EH 05-18 01:40 → 2S 05-18 01:40
PROVIDERS: ADMIT Obstetrics & Gynecology; ATTEND Obstetrics & Gynecology
DX: O26.832 Pregnancy related renal disease, second trimester (principal); O99.334 Smoking (tobacco) complicating childbirth; O23.02 Infections of kidney in pregnancy, second trimester; N20.0 Calculus of kidney; O99.332 Smoking (tobacco) complicating pregnancy, second trimester; F17.210 Nicotine dependence, cigarettes, uncomplicated; Z3A.10 10 weeks gestation of pregnancy
CPT/HCPCS: 36415; 71010; 76770; 76775; 76805; 80048; 80053; 80307; 81001; 82370; 82803; 82962; 83605; 85025; 85027; 87040; 87086; 87088; 87186; 93005; 93010; 96365; 99285; J0696; J1170; J1885; J2060; J2270; J2310; J2405; J2543; J2550; J3010; J3490; J7030; J7120

== ENCOUNTER 2017-11-15 20:04 | Inpatient (IN) | payer MEDICAID ==
[2017-11-15 20:58] LABS: APPEARANCE,URINE CLEAR; BILIRUBIN,URINE NEGATIVE (NEGATIVE); COLOR,URINE STRAW; GLUCOSE, URINE NEGATIVE (NEGATIVE); KETONES,URINE NEGATIVE (NEGATIVE); LEUKOCYTE ESTERASE,URINE NEGATIVE (NEGATIVE); NITRITE,URINE NEGATIVE (NEGATIVE); PROTEIN,URINE NEGATIVE (NEGATIVE); URINE SPECIFIC GRAVITY 1.006; UROBILINOGEN,URINE NEGATIVE mg/dL (<2.0)
[2017-11-15 21:18] LABS: ABSOLUTE BASOPHILS # (AUTO) 0.1 10^3/uL (0.0-0.2); ABSOLUTE EOSINOPHILS # (AUTO) 0.1 10^3/uL (0.0-0.6); ABSOLUTE LYMPHOCYTES (AUTO) 2.7 10^3/uL (0.5-4.7); ABSOLUTE MONOCYTES (AUTO) 1.1 10^3/uL (0.1-1.4); ABSOLUTE NEUT (AUTO) 12.1 10^3/uL (1.7-8.2); BASOPHILS % (AUTO) 0.3 % (0-2); EOSINOPHILS % (AUTO) 0.5 % (0-6); LYMPHOCYTES % (AUTO) 17.1 % (13-45); MEAN CORPUSCULAR HEMOGLOBIN 28.8 pg (27.0-33.4); MEAN CORPUSCULAR HGB CONC 33.2 g/dL (32.0-36.0); MEAN CORPUSCULAR VOLUME 87 fl (80-97); MONOCYTES % (AUTO) 6.7 % (3-13); PLATELET COUNT 416 10^3/uL (150-450); RED BLOOD COUNT 2.65 10^6/uL (3.72-5.28); RED CELL DISTRIBUTION WIDTH 17.8 % (11.5-14.0); SEGMENTED NEUTROPHILS % (AUTO) 75.4 % (42-78); TOTAL CELLS COUNTED % (AUTO) 100 %
[2017-11-15 21:24] LABS: HEMOGLOBIN 7.6 g/dL (12.0-15.5)
[2017-11-15 21:25] LABS: URINE AMPHETAMINES SCREEN NEGATIVE; URINE BARBITURATES SCREEN NEGATIVE; URINE BENZODIAZEPINES SCREEN NEGATIVE; URINE COCAINE SCREEN NEGATIVE; URINE MARIJUANA (THC) SCREEN NEGATIVE; URINE METHADONE SCREEN NEGATIVE; URINE PHENCYCLIDINE SCREEN NEGATIVE
[2017-11-15] MEDS ORDERED: PENICILLIN G-K 5 MILLION UNIT VIAL ONE (21:50)
--- NOTE | 2017-11-15 21:51 | RADIOLOGY REPORT (SQ) ---
EXAM DESCRIPTION: U/S OB 14+ TRNABD 1GES W/O DOP COMPLETED DATE/TIME: 11/15/2017 9:38 pm REASON FOR STUDY: NPNC, EGA, EFW, Postion, Placenta, Complete OB COMPARISON: 05/18/2017. TECHNIQUE: Static and Dynamic grayscale imaging performed of gravid uterus using transabdominal appr oach. Additional selected color Doppler and spectral images recorded. All stored on PACS. LIMITATIONS: None. FINDINGS: EGA: 39 week 6 day. SUGAR: 11/16/2017. EFW: 3,908 grams PERCENTILE: 79%. EMMA: Largest pocket 3 cm. PLACENTA: Anterior. PRESENTATION: Cephalic. ANATOMY: HEART RATE: 155 beats per minute. FOUR CHAMBER HEART: Visualized. THREE VESSEL CORD: Yes. CORD INSERTION: Visualized. KIDNEYS AND BLADDER: Visualized. Appear normal. STOMACH: Visualized. Appears normal. SPINE: Normal as visualized. BRAIN AND LATERAL VENTRICLES: Visualized. Appear normal. OTHER: No other significant finding. MATERNAL ADNEXA: Maternal ovaries not visualized. CERVICAL LENGTH: 3.2 cm. Closed. OTHER: No other significant finding. IMPRESSION: LIVING INTRAUTERINE . ESTIMATED GESTATIONAL AGE 39 week 6 day. NO VISUALIZED ANOMALIES. Trimester of : Third trimester - 28 weeks to delivery. TECHNICAL DOCUMENTATION: JOB ID: [id number] [employer]- All Rights Reserved
[2017-11-15] MEDS ORDERED: PENICILLIN G POTASSIUM 5,000,000 UNIT in DEXTROSE 5%-WATER 100 ML IV ONE (21:53)
[2017-11-15] MEDS ORDERED: RINGERS SOLUTION,LACTATED 1,000 ML IV PRN (21:53)
[2017-11-15] MEDS ORDERED: PENICILLIN G-K 5 MILLION UNIT VIAL IV PRN (22:13)
[2017-11-15 22:30] LABS: RUBELLA INTERPRETATION POSITIVE
[2017-11-15 22:58] LABS: CHLAM PCR NOT DETECTED (NOT DETECT); GON PCR NOT DETECTED (NOT DETECT)
[2017-11-15] MEDS ORDERED: DIPHENHYDRAMINE HCL 50 MG CAPSULE PO ONE (23:24)
[2017-11-15] MEDS ORDERED: DIPHENHYDRAMINE HCL 25 MG CAPSULE ONE (23:31)
[2017-11-15] MEDS ORDERED: BUPIVACAINE HCL 0.25 % INJ/PF (2.5 MG/1 ML) 30 ML VIAL ONE (23:44)
[2017-11-15] MEDS ORDERED: EPHEDRINE SULFATE INJ 50 MG/1 ML AMPULE ONE (23:44)
[2017-11-15] MEDS ORDERED: OXYTOCIN/NORMAL SALINE 20 UNIT/1,000 ML RTUINJ ONE (23:44)
[2017-11-15] MEDS ORDERED: MISOPROSTOL 0.2 MG TABLET ONE (23:44)
[2017-11-15] MEDS ORDERED: FENTANYL/BUPIVACAINE/NS/PF 200 MCG/100 ML RTUINJ EPI ONE (23:44)
[2017-11-15] MEDS ORDERED: LIDOCAINE 1% INJ-PF (10 MG/ML) 30 ML SDV ONE (23:44)
[2017-11-16] MEDS ORDERED: PENICILLIN G-K 5 MILLION UNIT VIAL ONE (01:56)
[2017-11-16] MEDS ORDERED: PENICILLIN G POTASSIUM 2,500,000 UNIT in DEXTROSE 5%-WATER 50 ML IV SCH (02:00)
[2017-11-16] MEDS ORDERED: BENZOCAINE/MENTHOL AEROSOL SPRAY 56 ML TOP PRN (02:27)
[2017-11-16] MEDS ORDERED: DIPH/PERTUSS(ACELL)/TETANUS VAC/PF 0.5 ML SYR (>=10YO) IM PRN (02:27)
[2017-11-16] MEDS ORDERED: OXYTOCIN/NORMAL SALINE 20 UNIT/1,000 ML RTUINJ IV PRN (02:27)
[2017-11-16] MEDS ORDERED: PROMETHAZINE HCL 25 MG TABLET PO PRN (02:27)
[2017-11-16] MEDS ORDERED: ZOLPIDEM TARTRATE 5 MG TABLET PO PRN (02:27)
[2017-11-16] MEDS ORDERED: PSEUDOEPHEDRINE HCL 30 MG TABLET PO PRN (02:27)
[2017-11-16] MEDS ORDERED: PROMETHAZINE HCL 25 MG SUPP.RECT PR PRN (02:27)
[2017-11-16] MEDS ORDERED: PROMETHAZINE HCL INJ 25 MG/1 ML VIAL IV PRN (02:27)
[2017-11-16] MEDS ORDERED: ACETAMINOPHEN 650 MG SUPP.RECT PR PRN (02:27)
[2017-11-16] MEDS ORDERED: GLYCERIN/WITCH HAZEL LEAF 1 EACH MED..PAD TP PRN (02:27)
[2017-11-16] MEDS ORDERED: DIBUCAINE 1% OINTMENT 28 GM TP PRN (02:27)
[2017-11-16] MEDS ORDERED: ACETAMINOPHEN WITH CODEINE #3 TABLET PO PRN (02:27)
[2017-11-16] MEDS ORDERED: DIPHENHYDRAMINE HCL 25 MG CAPSULE PO PRN (02:27)
[2017-11-16] MEDS ORDERED: MEASLES,MUMPS&RUBELLA VACC/PF 0.5 ML VIAL SUBCUT PRN (02:27)
[2017-11-16] MEDS ORDERED: NA PHOS,M-B/NA PHOS,DI-BA (ADULT) 133 ML ENEMA PR PRN (02:27)
[2017-11-16] MEDS ORDERED: MAGNESIUM HYDROXIDE SUSP 30 ML UDCUP PO PRN (02:27)
--- NOTE | 2017-11-16 02:35 | Warning Signs in Babies ---
VOD Warning Signs Datetime Report Generated by [facility]: 11/16/2017 02:35 VOD#608 -Warning Signs in Babies: Needs to be viewed. (11/15/2017 20:18:Ksenia Quinonez RN)
--- NOTE | 2017-11-16 03:13 | Delivery Summary ---
Del Sum A-C Datetime Report Generated by CPN: 11/16/2017 03:13 DELIVERY PERSONNEL DELIVERY PERSONNEL: [id number] Delivery Doctor:: Radames Sanchez MD Labor and Delivery Nurse:: Rosalba Dai RNproduce team lead Nurse:: Ksenia Quinonez RN Nursery Nurse:: Antionette Santiago RN Nursery Nurse:: Camila Ponce RN Plant Sprayer/WAREHOUSE HANDLER: Jasmine Dee, ST MATERNAL INFORMATION Delivery Anesthesia: Epidural Medications After Delivery: Pitocin Bolus-Please Comment; Pitocin Drip 20 Units/1000ml NSS; Other-Please Comment Meds After Delivery Comment: NS with Pitocin 20 units/liter IVF bolus per protocol, cytotec 1000mcg per rectum Estimated Blood Loss (ml): 250 Maternal Complications: Abruptio Placenta; Other Other Maternal Complications: No care, Anemia-received 1 unit PRBC while in labor Provider Comments: Very small placental abruption at the leading edge. LABOR SUMMARY EDC: 11/16/2017 00:00 No. Babies in Womb: 1 Attempted: No Labor Anesthesia: Epidural LABOR INFORMATION Reason for Induction: Not Applicable Onset of Labor: 11/15/2017 21:28 (Annotations: Data stored by N on behalf of user) Oxytocin: N/A Group B Beta Strep: unknown Name of Antibiotic Given: Penicillin Steroids Given: None Reason Steroids Not Administered: Not Applicable MEMBRANES Membranes Rupture Method: Artificial Rupture of Membranes: 11/15/2017 23:22 Length of Rupture (hr): 3.17 Amniotic Fluid Color: Bloody Amniotic Fluid Amount: Small Amniotic Fluid Odor: Normal STAGES OF LABOR Stage 3 hr: 0 Stage 3 min: 2 Total Time in Labor hr: 5 Total Time in Labor min: 6 VAGINAL DELIVERY Episiotomy: None Laceration #1: None Laceration Extension #1: N/A Laceration Repair: Not Applicable Sponge Count Correct: Vaginal Sweep Performed Sharps Count Correct: Yes BABY A INFORMATION Delivery Date/Time: 11/16/2017 02:32 Method of Delivery: Vaginal Born in Route : No : N/A Forceps: N/A Vacuum Extraction: N/A Shoulder Dystocia : No PRESENTATION/POSITION BABY A Presentation: Cephalic Cephalic Presentation: Vertex Vertex Position: Left Occipital Anterior Breech Presentation: N/A PLACENTA INFORMATION BABY A Placenta Delivery Time : 11/16/2017 02:34 Placenta Method of Delivery: Spontaneous Placenta Status: Delivered SCORES BABY A Heart Rate 1 min: >100 bpm Resp Effort 1 min: Good Cry Reflex Irritability 1 min: Cough or Sneeze or Pulls Away Muscle Tone 1 min: Active Motion Color 1 min: Blue/Pale SCORE 1 MIN: 8 Heart Rate 5 min: >100 bpm Resp Effort 5 min: Good Cry Reflex Irritability 5 min: Cough or Sneeze or Pulls Away Muscle Tone 5 min: Active Motion Color 5 min: Blue/Pale SCORE 5 MIN: 8 INFORMATION BABY A Gestational Age at Delivery: 40.0 Gestational Status: Full Term- 39- 40.6 Weeks Infant Outcome : Liveborn Infant Condition : Stable Sex: Male IDENTIFICATION BABY A Infant Verification Date/Time: 11/16/2017 03:06 ID Band Number: [id number] Mother's Name Verified: Yes RN Verifying : rn pepe Additional Verifying Personnel: vania sanchez WEIGHT/LENGTH BABY A Infant Birthweight (gm): 3205 Weight (lb): 7 Weight (oz): 1 Length (in): 20.00 Length (cm): 50.80 CORD INFORMATION BABY A No. Cord Vessels: 3 Nuchal Cord : N/A Cord Blood Taken: Yes-For Eval (Mom's Blood Type - or O+) Suction: Mouth ASSESSMENT BABY A Complications: Oligohydramnios Physical Findings at Delivery: Within Normal Limits Respirations: Appears Normal Skin to Skin: No Consulting Services Associate/ALS Called : No Care By: VANIA Ponce and VANIA Santiago Transferred To: Nursery BABY B INFORMATION : N/A SIGNATURES Signature: with User ID: [email or web address]
[2017-11-16] MEDS ORDERED: ACETAMINOPHEN WITH CODEINE #3 TABLET ONE (03:54)
[2017-11-16] MEDS: ACETAMINOPHEN WITH CODEINE #3 TABLET PO PRN ×4 (03:54→20:31)
--- NOTE | 2017-11-16 04:49 | Admission Physical ---
Datetime Report Generated by CPN: 11/16/2017 04:48 CURRENT ADMISSION Chief Complaint: Uterine Contractions; Vaginal Bleeding Indication for Induction: Not Applicable Indication for Induction: Term, Intrauterine ; Active Labor Admit Plan: Admit to Unit; Initiate Labor Protocol ALLERGIES Medication Allergies: No Medication Allergies: No Known Allergies (04/10/2017) Latex: No Latex Allergies Food Allergies: None Environmental Allergies: None OBSTETRICAL HISTORY EDC: 11/16/2017 00:00 : 4 Para: 2 Term: 2 IAB: 1 Livin Gestational Diabetes: Unknown Rh Sensitization: Unknown Incompetent Cervix: Unknown ANGLE: Unknown Infertility: Unknown ART Treatment: No Uterine Anomaly: Unknown IUGR: Unknown Hx Previous C/S: Unknown Macrosomia: Unknown Hx Loss/Stillborn: No PIH: Unknown Hx : Unknown Placenta Previa/Abruption: Unknown Depression/PP Depression: No PTL/PROM: Unknown Post Hemorrhage: Unknown Current Procedures: Ultrasound Obstetrical History Comments: G1-IAB G2-40.3-crl-lpnoozf-8lbs 6oz-21 inches long-postpardum hem G3-40.3-rnvy-pedqgkc-8lbs 9oz-19 inches long-post pardum hem-tranfusion required-epidural G4-only 1 visit SEE RECORDS Alcohol: No Marijuana : No Cocaine: No Other Illicit Drugs: No Cigarettes: Current Everyday Smoker. [id number] Cigarette Frequency: < 5 per day Advised to Stop: Yes Cigarette Comments: states she smoles 4-5 cigs per day MEDICAL HISTORY Diabetes: No Blood Transfusion: Yes Pulmonary Disease (Asthma, TB): No Breast Disease: No Hypertension: No Water Pollution Specialist Surgery: No Heart Disease: No Hosp/Surgery: Yes Autoimmune Disorder: No Anesthetic Complications: No Kidney Disease: Yes Abnormal Pap Smear: No Neuro/Epilepsy: No Psychiatric Disorders: No Other Medical Diseases: No Hepatitis/Liver Disease: No Significant Family History: No Varicosities/Phlebitis: No Trauma/Violence : No Thyroid Dysfunction: No Medical History Comments: hospital for 1 week April 2017 for kidney infection (was given antibiotics-unable to recall details), ppd hem with 2 pregnancies (1 required a blood transfusion) INFECTIOUS HISTORY Gonorrhea: No Genital Herpes: No Chlamydia: No Tuberculosis: No Syphilis: No Hepatitis: No HIV/AIDS Exposure: No Rash or Viral Illness: No HPV: No PHYSICAL EXAM General: Normal HEENT: Normal Neurologic: Normal Thyroid: Normal Heart: Normal Lungs: Normal Breast: Deferred Back: Normal Abdomen: Normal Genitourinary Exam: Normal Extremities: Normal DTRs: Normal Pelvic Type: Adequate Vital Signs: Reviewed VAGINAL EXAM Dilatation: 5 Effacement: 90 Station: 0 MEMBRANES Pooling: Positive Membranes: Ruptured FETUS A EGA: 39.6 FHR- Baseline: 120 Variability: Moderate 6-25bpm Accelerations: 15X15 Decelerations: None FHR Category: Category I Presentation: Vertex Admit Comment: She reports no care because she works too much. She is very anemic so we will cross some blood. PLANS FOR LABOR AND DELIVERY Labor and Delivery: None Pain Management: Epidural Feeding Preference: Formula Benefit of Breast Feed Discussed: Yes INFORMED CONSENT Signature: with User ID: [email or web address]
[2017-11-16] MEDS: IBUPROFEN 800 MG TABLET PO SCH ×3 (07:37→21:31)
--- NOTE | 2017-11-16 08:35 | Progress Note ---
Provider Note Provider Note: states she gets shaky and cold when up out of bed. denies JONES/ringing in ears/SOB /heart palpitations/dizziness. Will get CBC today.
[2017-11-16] MEDS: PRENATAL VITAMIN W DHA CAPSULE PO SCH (09:37)
[2017-11-16] MEDS: FERROUS SULFATE 325 MG TABLET PO SCH ×2 (09:37→17:53)
[2017-11-16] MEDS: FAMOTIDINE 20 MG TABLET PO SCH ×2 (09:37→21:32)
[2017-11-16] MEDS: DOCUSATE SODIUM 100 MG CAPSULE PO SCH ×2 (09:37→17:53)
[2017-11-16] MEDS: SENNOSIDES/DOCUSATE 8.6-50 MG 1 EACH TABLET PO SCH (09:38)
[2017-11-16 09:57] LABS: HEMATOCRIT 24.1 % (36.0-47.0); MEAN CORPUSCULAR HEMOGLOBIN 29.3 pg (27.0-33.4); MEAN CORPUSCULAR HGB CONC 33.3 g/dL (32.0-36.0); MEAN CORPUSCULAR VOLUME 88 fl (80-97); PLATELET COUNT 370 10^3/uL (150-450); RED BLOOD COUNT 2.73 10^6/uL (3.72-5.28); RED CELL DISTRIBUTION WIDTH 16.9 % (11.5-14.0); WHITE BLOOD COUNT 22.7 10^3/uL (4.0-10.5)
[2017-11-16 10:12] LABS: ABSOLUTE LYMPHOCYTES# (MANUAL) 3.9 10^3/uL (0.5-4.7); ABSOLUTE MONOCYTES # (MANUAL) 1.1 10^3/uL (0.1-1.4); ABSOLUTE NEUTROPHILS# (MANUAL) 17.7 10^3/uL (1.7-8.2); BASOPHILS % (MANUAL) 0 % (0-2); EOSINOPHILS % (MANUAL) 0 % (0-6); LYMPHOCYTES % (MANUAL) 17 % (13-45); MONOCYTES % (MANUAL) 5 % (3-13); SEGMENTED NEUTROPHILS % (MAN) 78 % (42-78); TOTAL CELLS COUNTED 100
[2017-11-16 10:14] LABS: ANISOCYTOSIS 1+; TOXIC GRANULATION 1+
[2017-11-16 10:15] LABS: PLATELET COMMENT ADEQUATE
--- NOTE | 2017-11-16 15:31 | Progress Note ---
Provider Note Provider Note: With VANIA Cardona as a witness to my conversation, CNM discussed with pt options for adoption to include going through an agency, not addressing the issue of adoption right now, and private adoption to a family that I know to be actively seeking to adopt. Pt stated that she has been most interested in direct private adoption and wants to meet with the interested family. CNM contacted the production planner and explained the patient's expressed wishes. The production planner, Annalee Lei, stated that he will not go back and talk with pt since he has already contacted the adoption agency. Annalee given contact information to use in the event the pt expresses desire to meet with adoptive family.
[2017-11-17] MEDS: ACETAMINOPHEN WITH CODEINE #3 TABLET PO PRN ×2 (04:22→12:25)
[2017-11-17] MEDS: IBUPROFEN 800 MG TABLET PO SCH ×2 (05:56→13:44)
[2017-11-17 07:41] LABS: HEPATITIS C VIRUS AB <0.1 s/co ratio (0.0-0.9)
[2017-11-17 08:03] LABS: HEMATOCRIT 23.9 % (36.0-47.0); MEAN CORPUSCULAR HEMOGLOBIN 28.9 pg (27.0-33.4); MEAN CORPUSCULAR HGB CONC 32.8 g/dL (32.0-36.0); MEAN CORPUSCULAR VOLUME 88 fl (80-97); PLATELET COUNT 400 10^3/uL (150-450); RED BLOOD COUNT 2.71 10^6/uL (3.72-5.28); RED CELL DISTRIBUTION WIDTH 17.4 % (11.5-14.0); WHITE BLOOD COUNT 17.1 10^3/uL (4.0-10.5)
[2017-11-17 08:05] LABS: HEMOGLOBIN 7.8 g/dL (12.0-15.5)
[2017-11-17 09:24] LABS: HEPATITS B SURFACE ANTIGEN Negative (Negative)
[2017-11-17] MEDS: DOCUSATE SODIUM 100 MG CAPSULE PO SCH (10:48)
[2017-11-17] MEDS: FERROUS SULFATE 325 MG TABLET PO SCH (10:48)
[2017-11-17] MEDS: SENNOSIDES/DOCUSATE 8.6-50 MG 1 EACH TABLET PO SCH (10:49)
[2017-11-17] MEDS: PRENATAL VITAMIN W DHA CAPSULE PO SCH (10:49)
[2017-11-17] MEDS: FAMOTIDINE 20 MG TABLET PO SCH (10:49)
--- NOTE | 2017-11-17 13:13 | PDOC PROGRESS REPORT ---
Subjective-OB Subjective: Post Delivery Day:1 22 year old G4 now P3 s/p ppd1. Ambulating and voiding without difficulty. Denies dizziness, sob or heavy bleeding since delivery. Planning on giving baby up for adoption and met with agency personnel yesterday, desires discharge from hospital today. Denies any needs at this time Physical Exam (OB) Vital Signs: Temp Pulse Resp BP Pulse Ox 97.8 F 74 16 101/53 L 98 11/17/17 08:35 11/17/17 08:37 11/17/17 08:35 11/17/17 08:37 11/17/17 08:37 Intake & Output 11/16/17 11/17/17 11/18/17 06:59 06:59 06:59 Intake Total 400 Balance 400 Weight 71.6 kg - General General Appearance: Appears well In distress: None - Episiotomy/Laceration Site Condition: N/A - Lochia Lochia Amount: Small 10-25 ml Lochia Color: Rubra/Red - Abdomen Description: Soft, Round Hernia Present: No Fundal Description: Firm, Midline Fundal Height: u/u - u/2 - Respiratory Respiratory Status: No respiratory distress - Extremities Upper extremity: Normal inspection Lower extremities: Normal inspection - Neurological Cognition: Normal Orientation: AAOx4 - Psychological Associated symptoms: Normal affect, Normal mood, Other - appears sad but firm with continuing with decision to give baby up for adoption. States she just misses her children and is ready to go home today. Objective-Diagnostic Laboratory: 11/17/17 07:33 11/16/17 11/17/17 09:13 07:33 WBC 22.7 H 17.1 H RBC 2.73 L 2.71 L Hgb 8.0 L 7.8 L Hct 24.1 L 23.9 L MCV 88 88 MCH 29.3 28.9 MCHC 33.3 32.8 RDW 16.9 H 17.4 H Plt Count 370 400 Seg Neutrophils % Not Reportable Lymphocytes % Not Reportable Monocytes % Not Reportable Eosinophils % Not Reportable Basophils % Not Reportable Absolute Neutrophils Not Reportable Absolute Lymphocytes Not Reportable Absolute Monocytes Not Reportable Absolute Eosinophils Not Reportable Absolute Basophils Not Reportable Assessment and Plan(PN) - Assessment and Plan (1) Limited care Is this a current diagnosis for this admission?: Yes Plan: delivered. tool planner consult placed on admission. (2) Normal delivery at term Is this a current diagnosis for this admission?: Yes Plan: routine pp care (3) Anemia complicating , unspecified trimester Is this a current diagnosis for this admission?: Yes Plan: pt. received blood transfusion while in labor (1unit), asymptomatic at this time. Continue to monitor, rx will be given for iron supplementation and increase iron in diet. (4) Blood transfusion during current hospitalization Is this a current diagnosis for this admission?: Yes Plan: Had 1 unit PRBC while in labor. Stable at this time, continue to monitor. (5) Qualifiers: Weeks of gestation: 40 weeks Qualified Code(s): Z3A.40 - 40 weeks gestation of Is this a current diagnosis for this admission?: Yes Plan: delivered. (6) Tobacco smoking affecting Qualifiers: Trimester: unspecified trimester Qualified Code(s): O99.330 - Smoking ( tobacco) complicating , unspecified trimester Is this a current diagnosis for this admission?: Yes Plan: cessation encouraged. - Time Spent with Patient Time with patient: 15-25 minutes Medications reviewed and adjusted accordingly: Yes - Disposition Anticipated Discharge: Home Within: within 24 hours, Other - adp-ozytsu-vgcqyaj discharge ok with Dr. Suarez
--- NOTE | 2017-11-17 13:16 | PDOC DISCHARGE SUMMARY ---
Final Diagnosis Discharge Date: 11/17/17 - Final Diagnosis (1) Limited care Is this a current diagnosis for this admission?: Yes (2) Normal delivery at term Is this a current diagnosis for this admission?: Yes (3) Anemia complicating , unspecified trimester Is this a current diagnosis for this admission?: Yes (4) Blood transfusion during current hospitalization Is this a current diagnosis for this admission?: Yes (5) Is this a current diagnosis for this admission?: Yes (6) Tobacco smoking affecting Is this a current diagnosis for this admission?: Yes Discharge Data - Discharge Medication Prescriptions: Ibuprofen [Motrin 800 mg Tablet] 800 mg PO Q8HP PRN #30 tablet PRN Reason: Docusate Sodium [Colace 100 mg Capsule] 100 mg PO BID #60 capsule Ferrous Sulfate [Feosol 325 mg Tablet] 325 mg PO BID #60 tablet Home Medications: Docusate Sodium [Colace 100 mg Capsule] 100 mg PO BID #60 capsule 11/17/17 Ferrous Sulfate [Feosol 325 mg Tablet] 325 mg PO BID #60 tablet 11/17/17 Ibuprofen [Motrin 800 mg Tablet] 800 mg PO Q8HP PRN #30 tablet 11/17/17 Reason(s) for Admission: Onset of Labor Procedures: Ultrasound Intrapartum Procedure(s): Spontaneous Vaginal Delivery - Diagnosis Test Laboratory: Temp Pulse Resp BP Pulse Ox 98.4 F 60 16 109/56 L 97 11/17/17 12:22 11/17/17 12:22 11/17/17 12:22 11/17/17 12:22 11/17/17 12:22 11/15/17 11/15/17 11/16/17 20:15 21:02 09:13 RBC 2.65 L 2.73 L Hgb 7.6 L 8.0 L Hct 23.0 L 24.1 L Urine Opiates Screen NEGATIVE 11/17/17 07:33 RBC 2.71 L Hgb 7.8 L Hct 23.9 L Urine Opiates Screen - Discharge information/Instructions Discharge Activity: Activity As Tolerated, Balance Activity w/Rest, No Lifting Over 10 Pounds, No Lifting/Push/Pulling, Pelvic Rest, Slowly Increase Activity, No tub bath Discharge Diet: Regular Disposition: HOME, SELF-CARE Follow up with: [facility] in: 4, Weeks - pp appt.
[2017-11-17 13:37] VITALS: BP 110/50
== END 2017-11-17 14:40 | disposition home or self-care (01) | DRG 774 ==
LOC: LC 20:04 → LR 21:38 → 2N 11-16 04:40
PROVIDERS: ADMIT Obstetrics & Gynecology; ATTEND Obstetrics & Gynecology
PROC: 10907ZC Drainage of Amniotic Fluid, Therapeutic from Products of Conception, Via Natural or Artificial Opening (ICD-10-PCS; 2017-11-15)
PROC: 4A1HXCZ Monitoring of Products of Conception, Cardiac Rate, External Approach (ICD-10-PCS; 2017-11-15)
PROC: 10E0XZZ Delivery of Products of Conception, External Approach (ICD-10-PCS; principal; 2017-11-16)
PROC: 30233N1 Transfusion of Nonautologous Red Blood Cells into Peripheral Vein, Percutaneous Approach (ICD-10-PCS; 2017-11-16)
DX: O45.93 Premature separation of placenta, unspecified, third trimester (principal); O41.03X0 Oligohydramnios, third trimester, not applicable or unspecified; O99.02 Anemia complicating childbirth; D64.9 Anemia, unspecified; O99.334 Smoking (tobacco) complicating childbirth; Z3A.39 39 weeks gestation of pregnancy; Z28.21 Immunization not carried out because of patient refusal; Z37.0 Single live birth
CPT/HCPCS: 36415; 36430; 76805; 80307; 81005; 85025; 85027; 86592; 86701; 86762; 86803; 86804; 86850; 86900; 86901; 86920; 87340; 87491; 87591; J2540; J2590; J3490; P9016

== ENCOUNTER 2020-03-24 07:13 | Emergency (ER) | payer SELFPAY ==
[2020-03-24 07:21] VITALS: BP 121/55
[2020-03-24] MEDS ORDERED: AMOXICILLIN TRYHYD 250 MG/5 ML SUSP 80 ML (ER DISP) PO ONE (08:09)
--- NOTE | 2020-03-24 08:09 | ER Document Report ---
Entered by JAMESON GALLEGO SCRIBE 03/24/20 0803 Acting as scribe for:SPEEDY DE OLIVEIRA DO ED General - General Chief Complaint: Jaw Pain Stated Complaint: MOUTH PAIN Time Seen by Provider: 03/24/20 07:37 Information source: Patient Notes: This 24-year-old female presents to the emergency department complaining of right-sided mouth swelling that began two days ago. Patient reports associated teeth pain and difficulty swallowing secondary to pain. Patient explains that she has been icing her mouth with no relief. Patient reports that her tongue is numb and she cannot open her mouth secondary to pain. Patient denies fever. TRAVEL OUTSIDE OF THE [place] IN LAST 30 DAYS: No - HPI Onset/Duration: Gradual - Related Data Allergies/Adverse Reactions: No Known Allergies Allergy (Unverified 04/10/17 00:36) Past Medical History - General Information source: Patient - Social History Smoking Status: Current Every Day Smoker Cigarette use (# per day): Yes Chew tobacco use (# tins/day): No Lives with: Family Family History: Reviewed & Not Pertinent - Medical History Medical History: Negative Surgical Hx: Negative Review of Systems - Review of Systems Constitutional: See HPI. denies: Fever EENT: See HPI, Mouth pain, Mouth swelling Cardiovascular: No symptoms reported Respiratory: No symptoms reported Gastrointestinal: No symptoms reported Genitourinary: No symptoms reported Female Genitourinary: No symptoms reported Musculoskeletal: No symptoms reported Skin: No symptoms reported Hematologic/Lymphatic: No symptoms reported Neurological/Psychological: No symptoms reported -: Yes All other systems reviewed and negative Physical Exam - Vital signs Vitals: Temp Pulse Resp BP Pulse Ox 98.2 F 115 H 16 121/55 L 97 03/24/20 07:17 03/24/20 07:17 03/24/20 07:17 03/24/20 07:17 03/24/20 07:17 - Notes Notes: Physical Exam: General: Alert, appears uncomfortable. HEENT: Atraumatic. PERRL. Extraocular movements intact. Oropharynx clear. Swelling along the angle of the jaw. Extensive caries on the K of the premolar of the lower jaw. Mouth and soft tissue is clear. Neck: Supple. Non-tender. Respiratory: No respiratory distress. Clear and equal breath sounds bilaterally. Cardiovascular: Regular rate and rhythm. Abdominal: Normal Inspection. Non-tender. No distension. Normal Bowel Sounds. Back: No gross abnormalities. Extremities: Moves all four extremities. Upper extremities: Normal inspection. Normal ROM. Lower extremities: Normal inspection. No edema. Normal ROM. Neurological: Normal cognition. AAOx4. Normal speech. Psychological: Anxious. Course - Re-evaluation Re-evalutation: 03/24/20 08:22 MDM Nontoxic 24 year female - immunocompetent - is here with a few days of right side jaw pain and swelling and poor dentition. No trismus on my exam and oropharnynx widely patent. Discussed dental follow up and she expressed underst anding. Smoker. We discussed cessation. - Vital Signs Vital signs: Temp Pulse Resp BP Pulse Ox 98.2 F 115 H 16 121/55 L 97 03/24/20 08:00 03/24/20 07:17 03/24/20 07:17 03/24/20 07:17 03/24/20 07:17 Discharge - Discharge Clinical Impression: Dental abscess, Dental caries Condition: Good Disposition: HOME, SELF-CARE Instructions: Abscess ([facility]), Oral Narcotic Medication ([facility]), Toothache ([facility]) Additional Instructions: Call the dentist for follow up. Finish the antibiotic. Rest. Please return here for any problems or any concerns. Forms: Smoking Cessation Education I personally performed the services described in the documentation, reviewed and edited the documentation which was dictated to the scribe in my presence, and it accurately records my words and actions.
[2020-03-24] MEDS ORDERED: OXYCODONE-ACETAMINOPHEN 5-325 MG TABLET PO ONE (08:10)
== END 2020-03-24 08:43 | disposition home or self-care (01) ==
LOC: ER 07:13
DX: K04.7 Periapical abscess without sinus (principal); K02.9 Dental caries, unspecified; K08.89 Other specified disorders of teeth and supporting structures; R13.10 Dysphagia, unspecified; F17.210 Nicotine dependence, cigarettes, uncomplicated
CPT/HCPCS: 99282

== ENCOUNTER 2020-03-30 08:54 | Emergency (ER) | payer SELFPAY ==
--- NOTE | 2020-03-30 09:24 | ER Document Report ---
ED Medical Screen (RME) - General Chief Complaint: Mouth Problem Stated Complaint: REVISIT MOUTH/TOOTH PAIN Time Seen by Provider: 03/30/20 09:23 Mode of Arrival: Ambulatory Information source: Patient Notes: 24-year-old female presented to ED for dental pain. Her jaw is swollen. She cannot open her mouth. She cannot take her medication because she cannot open her teeth to swallow the pill. She states the pain is getting much worse and the swelling is getting much worse. She states she has a dental appointment on Thursday and will not be able to keep that appointment if she cannot get the swelling down. I have ordered blood work IV contrast the soft tissue neck and IV clindamycin. I have also ordered IV Toradol. She states she just had a miscarriage 3 weeks ago. I have greeted and performed a rapid initial assessment of this patient. A comprehensive ED assessment and evaluation of the patient, analysis of test results and completion of medical decision making process will be conducted by an additional ED providers. TRAVEL OUTSIDE OF THE [place] IN LAST 30 DAYS: No - Related Data Allergies/Adverse Reactions: No Known Allergies Allergy (Verified 03/30/20 09:20) Past Medical History Renal/ Medical History: Denies: Hx Peritoneal Dialysis Physical Exam - Vital signs Vitals: Temp Pulse Resp BP Pulse Ox 98.6 F 82 16 118/58 L 97 03/30/20 09:06 03/30/20 09:06 03/30/20 09:06 03/30/20 09:06 03/30/20 09:06 Course - Vital Signs Vital signs: Temp Pulse Resp BP Pulse Ox 98.6 F 82 16 118/58 L 97 03/30/20 09:06 03/30/20 09:06 03/30/20 09:06 03/30/20 09:06 03/30/20 09:06
[2020-03-30] MEDS ORDERED: CLINDAMYCIN 600 MG/D5W RTU 600 MG/50 ML RTUPB IV ONE (09:25)
[2020-03-30] MEDS ORDERED: KETOROLAC TROMETHAMINE INJ/PF 30 MG/1 ML SDV IV ONE (09:25)
[2020-03-30] MEDS ORDERED: NORMAL SALINE 1000 ML 1,000 ML IV ONE ×2 (09:26→10:46)
[2020-03-30 10:04] LABS: ABSOLUTE EOSINOPHILS # (AUTO) 0.2 10^3/uL (0.0-0.6); ABSOLUTE MONOCYTES (AUTO) 0.9 10^3/uL (0.1-1.4); ABSOLUTE NEUT (AUTO) 7.4 10^3/uL (1.7-8.2); BASOPHILS % (AUTO) 0.5 % (0-2); EOSINOPHILS % (AUTO) 1.8 % (0-6); HEMATOCRIT 28.4 % (36.0-47.0); HEMOGLOBIN 9.5 g/dL (12.0-15.5); MEAN CORPUSCULAR HGB CONC 33.6 g/dL (32.0-36.0); MEAN CORPUSCULAR VOLUME 83 fl (80-97); MONOCYTES % (AUTO) 8.1 % (3-13); PLATELET COUNT 525 10^3/uL (150-450); RED BLOOD COUNT 3.41 10^6/uL (3.72-5.28); RED CELL DISTRIBUTION WIDTH 21.4 % (11.5-14.0); SEGMENTED NEUTROPHILS % (AUTO) 70.6 % (42-78); TOTAL CELLS COUNTED % (AUTO) 100 %; WHITE BLOOD COUNT 10.5 10^3/uL (4.0-10.5)
[2020-03-30 10:29] LABS: ALBUMIN 3.5 g/dL (3.5-5.0); ALKALINE PHOSPHATASE 90 U/L (38-126); ANION GAP 8 (5-19); ASPARTATE AMINO TRANSFERASE 13 U/L (14-36); BILIRUBIN,TOTAL 0.2 mg/dL (0.2-1.3); BLOOD UREA NITROGEN 15 mg/dL (7-20); CALCIUM 8.7 mg/dL (8.4-10.2); CARBON DIOXIDE 24 mmol/L (22-30); CHLORIDE 105 mmol/L (98-107); GLUCOSE 96 mg/dL (75-110); POTASSIUM 3.9 mmol/L (3.6-5.0); TOTAL PROTEIN 6.8 g/dL (6.3-8.2)
[2020-03-30] MEDS ORDERED: FENTANYL CITRATE INJ/PF 100 MCG/2 ML AMPUL IV ONE (10:43)
[2020-03-30] MEDS ORDERED: DEXAMETHASONE SOD PHOS INJ 10 MG/1 ML VIAL IV ONE (10:44)
--- NOTE | 2020-03-30 10:46 | ER Document Report ---
ED Oral Problem - General Chief Complaint: Toothache Stated Complaint: REVISIT MOUTH/TOOTH PAIN Time Seen by Provider: 03/30/20 09:23 Primary Care Provider: QUINN BERMUDEZ MD [ACTIVE STAFF] - 03/30/20 2:00 pm Mode of Arrival: Ambulatory Information source: Patient Notes: Patient presents complaining of dental pain with right cheek swelling. Patient states that she was here recently placed on amoxicillin. Patient states that initially the swelling had gone down but it has started to increase recently. Patient denies any fever. Patient complains of difficulty opening her mouth due to increased pain. TRAVEL OUTSIDE OF THE [place] IN LAST 30 DAYS: No - HPI Patient complains to provider of: Swelling of face, Toothache Onset: Last week Quality of pain: Achy Pain Level: 5 Associated symptoms: Other - Facial pain. denies: Cough, Fever Similar symptoms previously: Yes Recently seen / treated by doctor/dentist: Yes - Related Data Allergies/Adverse Reactions: No Known Allergies Allergy (Verified 03/30/20 09:20) Past Medical History - General Information source: Patient - Social History Smoking Status: Current Every Day Smoker Chew tobacco use (# tins/day): No Frequency of alcohol use: None Drug Abuse: None Occupation: Foodservice Family History: Reviewed & Not Pertinent Patient has homicidal ideation: No - Medical History Medical History: Negative Renal/ Medical History: Denies: Hx Peritoneal Dialysis Surgical Hx: Negative Review of Systems - Review of Systems Constitutional: No symptoms reported. denies: Fever EENT: Other - Dental pain Cardiovascular: No symptoms reported Respiratory: No symptoms reported Gastrointestinal: No symptoms reported. denies: Vomiting Genitourinary: No symptoms reported Female Genitourinary: No symptoms reported Musculoskeletal: No symptoms reported. denies: Back pain Skin: No symptoms reported Hematologic/Lymphatic: No symptoms reported Neurological/Psychological: No symptoms reported Physical Exam - Vital signs Vitals: Temp Pulse Resp BP Pulse Ox 98.6 F 82 16 118/58 L 97 03/30/20 09:06 03/30/20 09:06 03/30/20 09:06 03/30/20 09:06 03/30/20 09:06 - General General appearance: Appears well, Alert In distress: None - HEENT Head: Normocephalic, Atraumatic Eyes: Normal Conjunctiva: Normal Nasal: Normal Mouth/Lips: Caries Mucous membranes: Dry Teeth diagram: 1 - dental decay, positive trismus, patient able to open mouth 1 cm, no sublingual or submental swelling Pharynx: Normal Neck: Lymphadenopathy - right - Respiratory Respiratory status: No respiratory distress Chest status: Nontender Breath sounds: Normal. No: Rales, Rhonchi, Stridor, Wheezing Chest palpation: Normal - Cardiovascular Rhythm: Regular Heart sounds: S1 appreciated, S2 appreciated - Abdominal Inspection: Normal - Back Back: Normal - Extremities General upper extremity: Normal inspection, Normal ROM General lower extremity: Normal inspection, Normal ROM - Neurological Neuro grossly intact: Yes Cognition: Normal Stoney Coma Scale Eye Opening: Spontaneous [place] Coma Scale Verbal: Oriented Stoney Coma Scale Motor: Obeys Commands Stoney Coma Scale Total: 15 - Psychological Associated symptoms: Normal affect, Normal mood - Skin Skin Temperature: Warm Skin Moisture: Dry Skin Color: Normal Course - Re-evaluation Re-evalutation: 03/30/20 13:30 Patient with right peritonsillar abscess, patient is able to manage her oral secretions. Patient does have trismus and is able to open her mouth 1 cm at the teeth. Consulted with Dr. Hirsch who came by and evaluated patient. Recommends consultation with ENT to see if they can perform a in office drainage or if not then patient will require transfer to another facility. 03/30/20 13:35 Consulted with office, Dr Bermudez agrees to examine patient if she can get to their office patient, staff advise having patient present directly. 03/30/20 13:40 Dr. Hirsch is agreeable with this discharge plan of care as this patient. - Vital Signs Vital signs: Temp Pulse Resp BP Pulse Ox 98.2 F 88 18 121/60 97 03/30/20 13:44 03/30/20 13:44 03/30/20 13:44 03/30/20 13:44 03/30/20 13:44 - Laboratory Result Diagrams: 03/30/20 09:45 03/30/20 09:45 Laboratory results interpreted by me: 03/30/20 03/30/20 03/30/20 09:45 09:45 09:45 RBC 3.41 L Hgb 9.5 L Hct 28.4 L RDW 21.4 H Plt Count 525 H Sodium 136.6 L AST 13 L Beta HCG, Quant 1335.60 H Monotest POSITIVE H - Diagnostic Test Radiology reviewed: Reports reviewed Discharge - Discharge Clinical Impression: Tonsillar abscess Condition: Stable Disposition: HOME, SELF-CARE Instructions: Rose-Tonsillar Abscess ([facility]) Additional Instructions: Follow-up directly with Dr. Bermudez's office Return as needed for any new or worsening symptoms Referrals: QUINN BERMUDEZ MD [ACTIVE STAFF] - 03/30/20 2:00 pm
--- NOTE | 2020-03-30 11:56 | RADIOLOGY REPORT (SQ) ---
EXAM DESCRIPTION: CT SOFT TISSUE NECK WITH IMAGES COMPLETED DATE/TIME: 03/30/2020 11:36 am REASON FOR STUDY: Face and jaw swelling unable to open mouth COMPARISON: None. TECHNIQUE: Post IV contrasted scanning from skull base through lung apices with review of bone, soft tissue and lung windows. Reconstructed coronal and sagittal MPR images reviewed. All images stored on PACS. All CT scanners at this facility use dose modulation, iterative reconstruction, and/or weight based d osing when appropriate to reduce radiation dose to as low as reasonably achievable (ALARA). [facility]: Dose Right [facility]: CareDose [facility]: Dose Right [facility]: Teradose 4D [facility]: Cycell CONTRAST TYPE AND DOSE: Contrast/concentration: Isovue 350.00 mg/ml; Total Contrast Delivered: 75.0 ml; Total Saline Delivered: 55.0 ml RENAL FUNCTION: GFR > 60. RADIATION DOSE: CT Rad equipment meets quality standard of care and radiation dose reduction techniq ues were employed. CTDIvol: 12.4 mGy. DLP: 341 mGy-cm. LIMITATIONS: None. FINDINGS: SKULL BASE: Intact. MAJOR SALIVARY GLANDS: No abnormality of the parotid and submandibular glands LYMPHADENOPATHY: Enlarged right-sided level Ib, IIa and IIb lymph nodes that measure up to 8 mm in di ameter. MUCOSAL MASSES OR ASYMMETRY: Gas-containing fluid collection centered in the right mucosal pharyngeal space (in the region of the palatine tonsil) that on the axial plane measures approximately 3.5 x 2. 1 cm ; the superior aspect of the collect extends into the right parapharyngeal space (image 27 of se phu 3). LARYNX/CORDS: No abnormality. VASCULAR STRUCTURES: Patent. LUNG APICES: Clear. BONES: Intact. THYROID: No mass or asymmetry. PARANASAL SINUSES: Clear. OTHER: No other finding. IMPRESSION: 1. Peritonsillar abscess in the right mucosal pharyngeal and parapharyngeal spaces. On the axial plane the abscess measures approximately 3.5 x 2.1 cm. 2. Reactive right-sided level Ib, IIa, and IIb adenopathy TECHNICAL DOCUMENTATION: JOB ID: [id number] Quality ID # [id number]: Final reports with documentation of one or more dose reduction techniques (e.g., Au tomated exposure control, adjustment of the mA and/or kV according to patient size, use of iterative reconstruction technique) 2010 [employer]- All Rights Reserved Reading location - IP/workstation name: [email or web address]
--- NOTE | 2020-03-30 13:32 | ER Document Report ---
Doctor's Note Notes: 03/30/20 13:29 I was asked to evaluate this patient at the bedside with the midlevel provider. Patient is a generally healthy 24-year-old female who came in with difficulty swallowing and pain and swelling in mouth and throat area. Patient states that she has had multiple dental abscesses in the past and she thought this was probably the case today as well. Patient is hemodynamically stable. Her airway is patent and she is not drooling but she has a "hot potato" voice. She has moderate trismus and there is difficu lty in visualizing the posterior pharynx. She appears to have mucosal edema in the tonsillar area primarily on the right side. She also has enlarged anterior and posterior cervical adenopathy. Midlevel provider had already obtained CT of neck with IV contrast. This demonstrates a right-sided peritonsillar abscess. Patient has already been given IV Decadron and clindamycin. I recommended ENT consultation for drainage of the abscess.
[2020-03-30 13:45] VITALS: BP 121/60
== END 2020-03-30 13:44 | disposition home or self-care (01) ==
LOC: ER 08:54
DX: J36 Peritonsillar abscess (principal); K02.9 Dental caries, unspecified; R25.2 Cramp and spasm; K08.89 Other specified disorders of teeth and supporting structures; F17.200 Nicotine dependence, unspecified, uncomplicated
CPT/HCPCS: 99283; 96361; 96375; 96365; 36415; 84702; 85025; 86308; 80053; 70491; J3010; J1885; J7030; J1100